=== PATIENT | female | born 1970 | race Caucasian/White ===

== ENCOUNTER 2016-08-27 22:13 | Emergency (ER) | payer BC ==
[2016-08-27] MEDS ORDERED: Phenergan 25 MG INJ IV ONE (22:44)
[2016-08-27] MEDS ORDERED: Hydromorphone 1 mg/ml Ampule IV ONE (22:44)
[2016-08-27] MEDS ORDERED: Sodium Chloride 0.9% 1000 ML 1,000 ML IV SCH (22:45)
[2016-08-27] MEDS ORDERED: Hydromorphone 1 mg/ml Ampule ONE (22:52)
[2016-08-27] MEDS ORDERED: Sodium Chloride 0.9% 1000 ML 1,000 ML ONE (22:52)
[2016-08-27] MEDS ORDERED: Phenergan 25 MG INJ ONE (22:52)
--- NOTE | 2016-08-27 22:52 | ERPHSYRPT ---
- History of Present Illness Time Seen by Provider: 08/27/16 22:29 Source: patient, family () Exam Limitations: no limitations Patient Subjective Stated Complaint: Head on left side near ear and neck has hurt all day. PT has layed in bed most of the day. PT was going to the bathroom when she fell. pt c/o pain to the back of head, left side of neck, left shoulder , left knee. pt denies blacking out and did not hit anything except the floor. Triage Nursing Assessment: PT is alert x 3. came into the ER by wheelchair. skin pink warm and dry large bruise noted the left knee. scrap noted the left elbow. respirations even and unlabored. Hand grasps equal normal power, foot pushes equal normal power. Physician History: ABOUT 80 MINUTES AGO PT WAS AT HOME WALKING FROM THE BEDROOM TO THE DINING ROOM AND SUDDENLY FELL WITH RESULTANT PAIN IN THE LEFT KNEE, LEFT ELBOW, LEFT ARM, LEFT SHOULDER AND LEFT SIDE OF THE NECK. PT STATES SHE HAS HAD A LEFT SIDED HEADACHE AND LEFT EARACHE EARLIER TODAY AND HAS NUMBNESS OF THE LEFT SIDE OF THE NECK(WHICH SHE HAS HAD INTERMITTENTLY FOR THE PAST YEAR). PT ALSO C/O DULL LEFT ANTERIOR CHEST PAIN AFTER THE FALL FOR 15 MINUTES. Allergies/Adverse Reactions: cephalexin monohydrate [From Keflex] Allergy (Intermediate, Verified 11/03/12 18 :22) Rash Penicillins Allergy (Intermediate, Verified 11/03/12 18:22) Rash prednisone Allergy (Intermediate, Verified 08/27/16 22:27) Rash Home Medications: Lisinopril 20 mg PO DAILY 09/12/11 [History] Multivitamin W/Iron, Minerals [Unicap Sr] 1 each PO DAILY 09/12/11 [History] Zolpidem Tartrate 10 mg [Ambien 10 MG] 10 mg PO HS 09/12/11 [History] Cyclobenzaprine HCl 10 mg [Flexeril 10 MG] 10 mg PO TID PRN PRN 11/03/12 [ History] Buspirone HCl 15 mg PO DAILY 11/10/13 [History] Potassium Chloride [Klor-Con 8] 8 meq PO DAILY 11/12/13 [History] Alprazolam 0.5 mg PO DAILY PRN PRN 05/13/16 [History] Citalopram Hydrobromide [Celexa] 60 mg PO DAILY 05/13/16 [History] Hydrocodone/APAP 10/325 mg [Stark 10/325 MG Tablet] 1 tab PO Q6H PRN PRN 05/13/16 [History] Diclofenac Sodium [Voltaren] 75 mg PO DAILY 08/27/16 [History] Furosemide 20 mg [Lasix 20 mg] 20 mg PO DAILY 08/27/16 [History] Ibuprofen 800 mg PO UD 08/27/16 [History] Hx Tetanus, Diphtheria Vaccination/Date Given: No Hx Influenza Vaccination/Date Given: No Hx Pneumococcal Vaccination/Date Given: No Immunizations Up to Date: Yes - Review of Systems Ears, Nose, & Throat: Ear Pain (LEFT) Cardiac: Chest Pain Musculoskeletal: Neck Pain, Other (PAIN IN LEFT KNEE, ELBOW, ARM AND SHOULDER ) Neurological: Headache, Sensory Changes (NUMBNESS OVER LEFT SIDE OF NECK) All Other Systems: Reviewed and Negative - Past Medical History Pertinent Past Medical History: Yes Neurological History: No Pertinent History ENT History: No Pertinent History Cardiac History: Arrhythmia, Hypertension Respiratory History: No Pertinent History Endocrine Medical History: No Pertinent History Musculoskeletal History: Arthritis GI Medical History: GERD, Gallbladder Disease, Other History: No Pertinent History Psycho-Social History: Anxiety, Depression, Panic Disorder Female Reproductive Disorders: Pelvic Inflammatory Disease Other Medical History: anemia - Past Surgical History Past Surgical History: Yes Neuro Surgical History: No Pertinent History Cardiac: No Pertinent History Respiratory: No Pertinent History Gastrointestinal: Cholecystectomy Genitourinary: No Pertinent History Musculoskeletal: Other Female Surgical History: Section, Tubal Ligation Other Surgical History: back surgery, nodule taken off stomach - Social History Smoking Status: Never smoker Exposure to second hand smoke: No Drug Use: none Patient Lives Alone: No Significant Family History: no pertinent family hx - Female History Hx Now: No - Nursing Vital Signs Nursing Vital Signs: Initial Vital Signs Temperature 97.9 F Temperature Source Oral Pulse Rate 55 Respiratory Rate 20 Blood Pressure [] 120/72 Pain Intensity 8 - [place] Coma Score Best Eye Response ([place]): (4) open spontaneously Best Verbal Response ([place]): (5) oriented Best Motor Response ([place]): (6) obeys commands [place] Total: 15 - Physical Exam General Appearance: alert Head Injury: no evidence of injury Eye Exam: PERRL/EOMI, eyes nml inspection ENT Exam: airway nml, hearing grossly normal, No dental injury Neck Exam: trachea midline Respiratory/Chest Exam: normal breath sounds Cardiovascular Exam: normal heart sounds Gastrointestinal Exam: soft, normal bowel sounds Back Exam: normal range of motion Extremity Exam: normal range of motion, tenderness (MILD TENDERNESS OVER BRUISE ON INFERIOR ASPECT OF THE LEFT KNEE; MILD TENDERNESS OVER SUPERFICIAL ABRASION OF THE LEFT ELBOW; MILD TENDERNESS OF THE LEFT ARM AND POSTERIOR ASPECT OF THE LEFT SHOULDER.) Peripheral Pulses: dorsalis-pedis (R): 2+, dorsalis-pedis (L): 2+ Neurologic Exam: alert, cooperative, sensation nml, No motor weakness SpO2 Interpretation: normal SpO2: 97 Oxygen Delivery: Room Air - Course Nursing assessment & vital signs reviewed: Yes EKG Interpreted by Me: RATE (59), Sinus Jez, NORMAL AXIS, NORMAL INTERVALS - Radiology Exams Left Shoulder X-ray Interpretation: Interpreted by me, No Fracture Left Knee X-ray Interpretation: Interpreted by me, No Fracture Chest X-ray Interpretation: Interpreted by me, No Pneumonia Left Elbow X-ray Interpretation: Teleradiologist Report (NO ACUTE FINDINGS) Left Humerus X-ray Interpretation: Teleradiologist Report (NORMAL LEFT HUMERUS X-RAYS.) - CT Exams Head CT Interpretation: Tele-radiologist Report (NEGATIVE HEAD CT. NO INTRACRANIAL HEMORRHAGE, FRACTURE OR OTHER TRAUMATIC INJURY IS SEEN.) Cervical Spine CT Interpretation: Tele-radiologist Report (MILD CERVICAL DEGENERATIVE CHANGES. NO ACUTE FRACTURE, DISLOCATION OR OTHER TRAUMATIC INJURY IS SEEN.) Ordered Tests: Active Orders 24 hr Category Date Time Status EKG-ER Only STAT Care 08/27/16 22:42 Active IV Insertion STAT Care 08/27/16 22:42 Active CERVICAL SPINE WO CONTRAST [CT] Stat Exams 08/27/16 22:40 Taken CHEST 1 VIEW (PORTABLE) Stat Exams 08/27/16 22:42 Taken ELBOW (MINIMUM 3 VIEWS) Stat Exams 08/27/16 22:41 Taken HEAD WITHOUT CONTRAST [CT] Stat Exams 08/27/16 22:45 Taken HUMERUS Stat Exams 08/27/16 22:41 Taken KNEE (3 VIEWS) Stat Exams 08/27/16 22:41 Taken SHOULDER Stat Exams 08/27/16 22:41 Taken AMYLASE Stat Lab 08/27/16 22:50 Completed CBC W DIFF Stat Lab 08/27/16 22:50 Completed CMP Stat Lab 08/27/16 22:50 Completed LIPASE Stat Lab 08/27/16 22:50 Completed MAGNESIUM Stat Lab 08/27/16 22:50 Completed TROPONIN Q3H Lab 08/27/16 22:50 Completed TROPONIN Q3H Lab 08/28/16 01:45 Ordered TROPONIN Q3H Lab 08/28/16 04:45 Ordered TROPONIN Q3H Lab 08/28/16 07:45 Ordered TROPONIN Q3H Lab 08/28/16 10:45 Ordered UA W/RFX UR CULTURE Stat Lab 08/27/16 23:40 Completed Medication Summary Generic Name Dose Route Start Last Admin Trade Name Freq PRN Reason Stop Dose Admin Sodium Chloride 1,000 mls @ 100 mls/hr 08/27/16 22:45 08/27/16 22:55 Sodium Chloride 0.9% 1000 Ml IV 09/26/16 22:44 100 mls/hr .Q10H HARI Administration Discontinued Medications Generic Name Dose Route Start Last Admin Trade Name Freq PRN Reason Stop Dose Admin Hydromorphone HCl 1 mg 08/27/16 22:44 08/27/16 22:55 Hydromorphone 1 Mg/Ml Ampule IV 08/27/16 22:45 1 mg STAT ONE Administration Hydromorphone HCl Confirm 08/27/16 22:52 Hydromorphone 1 Mg/Ml Ampule Administered 08/27/16 22:53 Dose 1 mg .ROUTE .STK-MED ONE Hydromorphone HCl 1 mg 08/28/16 01:27 08/28/16 01:31 Hydromorphone 1 Mg/Ml Ampule IV 08/28/16 01:28 1 mg STAT ONE Administration Hydromorphone HCl Confirm 08/28/16 01:30 Hydromorphone 1 Mg/Ml Ampule Administered 08/28/16 01:31 Dose 1 mg .ROUTE .STK-MED ONE Promethazine HCl 12.5 mg 08/27/16 22:44 08/27/16 22:56 Phenergan 25 Mg Inj IV 08/27/16 22:45 12.5 mg STAT ONE Administration Promethazine HCl Confirm 08/27/16 22:52 Phenergan 25 Mg Inj Administered 08/27/16 22:53 Dose 25 mg .ROUTE .STK-MED ONE Lab/Rad Data: Laboratory Result Diagrams 08/27/16 22:50 08/27/16 22:50 Laboratory Results 08/27/16 08/27/16 08/27/16 Range/Units 23:40 22:50 22:50 WBC (4.0-10.5) K/mm3 RBC (4.1-5.4) M/mm3 Hgb (12.0-16.0) gm/dl Hct (35-47) % MCV (78-100) fl MCH (26-32) pg MCHC (32-36) g/dl RDW (11.5-14.0) % Plt Count (150-450) K/mm3 MPV (6-9.5) fl Gran % (36.0-66.0) % Lymphocytes % (24.0-44.0) % Monocytes % (0.0-12.0) % Eosinophils % (0.00-5.0) % Basophils % (0.0-0.4) % Basophils # (0-0.4) Sodium 141 (136-145) mEq/L Potassium 3.2 L (3.5-5.1) mEq/L Chloride 106 (98-107) mEq/L Carbon Dioxide 26.3 (21-32) mEq/L Anion Gap 11.6 (5-15) MEQ/L BUN 9 (9-20) mg/dL Creatinine 0.76 (0.55-1.30) mg/dl Estimated GFR > 60 ML/MIN Glucose 109 (70-110) MG/DL Calcium 8.4 L (8.5-10.1) mg/dL Magnesium 1.8 (1.8-2.4) mg/dL Total Bilirubin 0.30 (0.2-1.0) mg/dL AST 16 (15-37) U/L ALT 31 (12-78) U/L Alkaline Phosphatase 62 (46-116) U/L Troponin I < 0.017 (0.000-0.056) ng/ml Serum Total Protein 7.1 (6.4-8.2) gm/dL Albumin 3.3 L (3.4-5.0) g/dL Amylase 46 (25-115) U/L Lipase 101 (73-393) U/L Ur Collection Type CLEAN CATCH Urine Color YELLOW (YELLOW) Urine Appearance CLEAR (CLEAR) Urine pH 7.0 (5-6) Ur Specific [place] 1.025 (1.005-1.025) Urine Protein NEGATIVE (Negative) Urine Glucose (UA) NEGATIVE (NEGATIVE) mg/dL Urine Ketones NEGATIVE (NEGATIVE) Urine Nitrite NEGATIVE (NEGATIVE) Urine Bilirubin NEGATIVE (NEGATIVE) Urine Urobilinogen 1 (0-1) mg/dL Urine WBC (Auto) NEGATIVE (NEGATIVE) Urine RBC (Auto) NEGATIVE (0-5) Julian/ul Specimen Received 08/27/16:2340 08/27/16 Range/Units 22:50 WBC 6.8 (4.0-10.5) K/mm3 RBC 4.22 (4.1-5.4) M/mm3 Hgb 12.3 (12.0-16.0) gm/dl Hct 38.3 (35-47) % MCV 90.8 (78-100) fl MCH 29.1 (26-32) pg MCHC 32.1 (32-36) g/dl RDW 14.1 H (11.5-14.0) % Plt Count 280 (150-450) K/mm3 MPV 9.0 (6-9.5) fl Gran % 56.4 (36.0-66.0) % Lymphocytes % 33.2 (24.0-44.0) % Monocytes % 6.9 (0.0-12.0) % Eosinophils % 3.1 (0.00-5.0) % Basophils % 0.4 (0.0-0.4) % Basophils # 0.03 (0-0.4) Sodium (136-145) mEq/L Potassium (3.5-5.1) mEq/L Chloride (98-107) mEq/L Carbon Dioxide (21-32) mEq/L Anion Gap (5-15) MEQ/L BUN (9-20) mg/dL Creatinine (0.55-1.30) mg/dl Estimated GFR ML/MIN Glucose (70-110) MG/DL Calcium (8.5-10.1) mg/dL Magnesium (1.8-2.4) mg/dL Total Bilirubin (0.2-1.0) mg/dL AST (15-37) U/L ALT (12-78) U/L Alkaline Phosphatase (46-116) U/L Troponin I (0.000-0.056) ng/ml Serum Total Protein (6.4-8.2) gm/dL Albumin (3.4-5.0) g/dL Amylase (25-115) U/L Lipase (73-393) U/L Ur Collection Type Urine Color (YELLOW) Urine Appearance (CLEAR) Urine pH (5-6) Ur Specific [place] (1.005-1.025) Urine Protein (Negative) Urine Glucose (UA) (NEGATIVE) mg/dL Urine Ketones (NEGATIVE) Urine Nitrite (NEGATIVE) Urine Bilirubin (NEGATIVE) Urine Urobilinogen (0-1) mg/dL Urine WBC (Auto) (NEGATIVE) Urine RBC (Auto) (0-5) Julian/ul Specimen Received - Departure Time of Disposition: 02:25 Departure Disposition: Home Clinical Impression: FALL, LEFT KNEE CONTUSION, HEADACHE, NECK PAIN, LEFT SHOULDER SPRAIN, LEFT ELBOW/ARM PAIN., CHEST PAIN Condition: Stable Critical Care Time: No Referrals: KARLA [place] [Primary Care Provider] - Instructions: Prevent Falls, Contusion, Shoulder Sprain Additional Instructions: FOLLOW UP WITH PRIVATE DOCTOR TOMORROW. WEAR LEFT ARM SLING FOR COMFORT. Prescriptions: Naproxen [Naprosyn] 500 mg PO [id number] PRN #20 tablet PRN Reason: Pain
[2016-08-27 23:07] LABS: BASOPHIL % 0.4 % (0.0-0.4); Eosinophil % 3.1 % (0.00-5.0); Granulocytes % 56.4 % (36.0-66.0); Lymphocytes % 33.2 % (24.0-44.0); Mean Cell Volume 90.8 fl (78-100); Mean Corpuscular Hemoglobin 29.1 pg (26-32); Monocytes % 6.9 % (0.0-12.0); Platelet Count 280 K/mm3 (150-450); Red Blood Count 4.22 M/mm3 (4.1-5.4); Red Cell Distribution Width 14.1 % (11.5-14.0); White Blood Count 6.8 K/mm3 (4.0-10.5)
[2016-08-27 23:27] LABS: ALBUMIN 3.3 g/dL (3.4-5.0); ALKALINE PHOSPHATASE 62 U/L (46-116); ANION GAP 11.6 MEQ/L (5-15); BLOOD UREA NITROGEN 9 mg/dL (9-20); CHLORIDE 106 mEq/L (98-107); Carbon Dioxide 26.3 mEq/L (21-32); Glucose 109 MG/DL (70-110); LIPASE 101 U/L (73-393); MAGNESIUM 1.8 mg/dL (1.8-2.4); Potassium 3.2 mEq/L (3.5-5.1); SGOT/AST 16 U/L (15-37); SGPT/ALT 31 U/L (12-78); SODIUM 141 mEq/L (136-145); Total Protein 7.1 gm/dL (6.4-8.2)
[2016-08-28 00:17] LABS: ADD URINE CULTURE? NO (NO); COMPLETE URINE MICROSCOPIC? NO; Collection Type CLEAN CATCH
[2016-08-28] MEDS ORDERED: Hydromorphone 1 mg/ml Ampule IV ONE (01:27)
[2016-08-28] MEDS ORDERED: Hydromorphone 1 mg/ml Ampule ONE (01:30)
[2016-08-28 01:53] VITALS: BP 120/72; PULSE 55
[2016-08-28 02:08] VITALS: O2SAT 97
[2016-08-28] MEDS ORDERED: NORCO 5/325 MG PO ONE (02:45)
[2016-08-28] MEDS ORDERED: NORCO 5/325 MG ONE (02:46)
--- NOTE | 2016-08-28 07:39 | XRAY ---
Indication: Pain following fall. Comparison: None 3 views of the left knee intact with mild medial degenerative joint space narrowing and small proximal tibial benign appearing sclerotic lesion, bone island versus healed fibrous cortical defect. No other bony, articular, or soft tissue abnormalities.
--- NOTE | 2016-08-28 07:41 | XRAY ---
Indication: Pain following fall. Multiple contiguous axial images obtained through the head without contrast. Comparison: None Normal appearing brain parenchyma, ventricles, and bony calvarium. Visualized paranasal sinuses and mastoid air cells are clear. Impression: Normal CT head without contrast exam. Comment: Preliminary interpretation was made by [facility]. No discrepancy. CTDI 65.42
--- NOTE | 2016-08-28 07:46 | XRAY ---
Indication: Pain following fall. Comparison: None 3 views of the left shoulder intact with mild acromioclavicular degenerative arthropathy. No other bony, articular, or soft tissue abnormalities.
--- NOTE | 2016-08-28 07:46 | XRAY ---
Indication: Pain following fall. Comparison: None Single PA chest demonstrates normal heart, lungs, and bony thorax.
--- NOTE | 2016-08-28 07:46 | XRAY ---
Indication: Neck and shoulder pain following fall. Multiple contiguous axial images obtained through the cervical spine. Sagittal and coronal reformatted images obtained. Comparison: None Axial images negative for acute fracture, suspicious bony lesions, or spinal canal stenosis. Minimal C6-C7 degenerative endplate spurring. Sagittal and coronal reformatted images demonstrate slight cervical lordotic straightening, positional versus paraspinal muscular spasm. Minimal C6-C7 disc space narrowing. No acute compression fracture, subluxation, or jumped facet. Normal-appearing craniocervical junction. Visualized noncontrasted soft tissues including base of the brain and lung apices are unremarkable. Impression: 1. Negative acute fracture/subluxation. 2. Lordotic straightening, positional versus paraspinal spasm. 3. Minimal C6-C7 degenerative disc disease. Comment: Preliminary interpretation was made by [facility]. No discrepancy. CTDI 128.72
--- NOTE | 2016-08-28 07:48 | XRAY ---
Indication: Pain following fall. Comparison: None 2 views of the left humerus demonstrates mild acromioclavicular degenerative arthropathy and medial elbow accessory ossicle. No other bony, articular, or soft tissue abnormalities. Comment: Preliminary interpretation was made by [facility]. No discrepancy.
--- NOTE | 2016-08-28 07:50 | XRAY ---
Indication: Pain following fall. Comparison: None 3 views of the left elbow demonstrates medial elbow accessory ossicle. No other bony, articular, or soft tissue abnormalities. Comment: Preliminary interpretation was made by [facility]. No discrepancy.
== END 2016-08-28 02:54 | disposition home or self-care (01) ==
LOC: ED 22:13
DX: S80.02XA Contusion of left knee, initial encounter (principal); R51 Headache; M54.2 Cervicalgia; S43.402A Unspecified sprain of left shoulder joint, initial encounter; M25.522 Pain in left elbow; M79.602 Pain in left arm; R07.89 Other chest pain; W18.39XA Other fall on same level, initial encounter; Z79.899 Other long term (current) drug therapy
CPT/HCPCS: 36000; 36415; 70450; 71010; 72125; 73030; 73060; 73080; 73562; 80053; 81002; 82150; 83690; 83735; 84484; 85025; 93005; 96360; 96361; 96374; 96375; 96376; 99284; 99285; J1170; J2550; A9270-GY

== ENCOUNTER 2016-09-15 06:37 | Emergency (ER) | payer BC ==
[2016-09-15] MEDS ORDERED: Zofran 4 MG/2 ML VIAL IV ONE (07:36)
[2016-09-15] MEDS ORDERED: PROTONIX 40 MG IV IV ONE ×2 (07:36→07:51)
[2016-09-15] MEDS ORDERED: Sodium Chloride 0.9% 1000 ML 1,000 ML IV SCH (07:45)
[2016-09-15] MEDS ORDERED: Zofran 4 MG/2 ML VIAL ONE (07:51)
[2016-09-15] MEDS ORDERED: Sodium Chloride 0.9% 1000 ML 1,000 ML ONE (07:51)
[2016-09-15 08:10] LABS: BASOPHIL % 0.4 % (0.0-0.4); Eosinophil % 1.2 % (0.00-5.0); Granulocytes % 72.6 % (36.0-66.0); Lymphocytes % 18.7 % (24.0-44.0); Mean Cell Volume 92.2 fl (78-100); Mean Corpuscular Hemoglobin 29.8 pg (26-32); Mean Platelet Volume 9.3 fl (6-9.5); Monocytes % 7.1 % (0.0-12.0); Platelet Count 277 K/mm3 (150-450); Red Blood Count 4.23 M/mm3 (4.1-5.4); Red Cell Distribution Width 14.7 % (11.5-14.0); White Blood Count 7.4 K/mm3 (4.0-10.5)
[2016-09-15 08:15] LABS: ALBUMIN 3.5 g/dL (3.4-5.0); ALKALINE PHOSPHATASE 61 U/L (46-116); ANION GAP 12.3 MEQ/L (5-15); BLOOD UREA NITROGEN 12 mg/dL (9-20); CHLORIDE 106 mEq/L (98-107); Carbon Dioxide 28.4 mEq/L (21-32); Glucose 94 MG/DL (70-110); LIPASE 103 U/L (73-393); Potassium 3.7 mEq/L (3.5-5.1); SGOT/AST 18 U/L (15-37); SGPT/ALT 19 U/L (12-78); SODIUM 143 mEq/L (136-145); Total Protein 7.1 gm/dL (6.4-8.2)
--- NOTE | 2016-09-15 08:20 | ERPHSYRPT ---
- History of Present Illness Time Seen by Provider: 09/15/16 07:10 Historian: patient Exam Limitations: clinical condition Patient Subjective Stated Complaint: pt is co weakness today and bilat lower abd pain sharp in nature non radiating -walking makes it worse she thought it was gas but went to bathroom had sm bm but pain cont and she had to leave work - she has had chilling yesterday -she has pain and bruising of her left knee and pain to left arm from fall -she is tender to right lower ribs - she feels hot and cold at times Triage Nursing Assessment: pt is awake and alert and able to answer questions - she is moaning form the pain with movement Physician History: PATIENT COMPLAINS OF LOWER ABDOMINAL PAINS SINCE LAST NIGHT SHARP IN CHARACTER, DENIES FEVER, NAUSEA, EMESIS, DIARRHEA OR URINARY SYMPTOMS. Timing/Duration: yesterday Activities at Onset: none Quality: cramping Abdominal Pain Onset Location: RLQ, LLQ Pain Radiation: no radiation, flank Severity of Pain-Max: moderate Severity of Pain-Current: moderate Modifying Factors: Improves With: nothing Associated Symptoms: denies symptoms Allergies/Adverse Reactions: cephalexin monohydrate [From Keflex] Allergy (Intermediate, Verified 09/15/16 07 :19) Rash Penicillins Allergy (Intermediate, Verified 09/15/16 07:19) Rash prednisone Allergy (Intermediate, Verified 09/15/16 07:19) Rash Home Medications: Lisinopril 20 mg PO DAILY 09/12/11 [History] Multivitamin W/Iron, Minerals [Unicap Sr] 1 each PO DAILY 09/12/11 [History] Zolpidem Tartrate 10 mg [Ambien 10 MG] 10 mg PO HS 09/12/11 [History] Cyclobenzaprine HCl 10 mg [Flexeril 10 MG] 10 mg PO TID PRN PRN 11/03/12 [ History] Buspirone HCl 15 mg PO DAILY 11/10/13 [History] Potassium Chloride [Klor-Con 8] 8 meq PO DAILY 11/12/13 [History] Alprazolam 0.5 mg PO DAILY PRN PRN 05/13/16 [History] Citalopram Hydrobromide [Celexa] 60 mg PO DAILY 05/13/16 [History] Hydrocodone/APAP 10/325 mg [[place] 10/325 MG Tablet] 1 tab PO Q6H PRN PRN 05/13/16 [History] Diclofenac Sodium [Voltaren] 75 mg PO DAILY 08/27/16 [History] Furosemide 20 mg [Lasix 20 mg] 40 mg PO DAILY 08/27/16 [History] Hx Tetanus, Diphtheria Vaccination/Date Given: No Hx Influenza Vaccination/Date Given: No Hx Pneumococcal Vaccination/Date Given: No - Review of Systems Constitutional: No Fever, No Chills Eyes: No Symptoms Ears, Nose, & Throat: No Symptoms Respiratory: No Symptoms, No Cough, No Dyspnea Cardiac: No Symptoms, No Chest Pain, No Edema, No Syncope Abdominal/Gastrointestinal: No Nausea, No Vomiting, No Diarrhea Genitourinary Symptoms: No Symptoms, No Dysuria Musculoskeletal: No Symptoms, No Back Pain, No Neck Pain Skin: No Rash Neurological: No Symptoms, No Dizziness, No Focal Weakness, No Sensory Changes Psychological: No Symptoms Endocrine: No Symptoms All Other Systems: Reviewed and Negative - Past Medical History Pertinent Past Medical History: Yes Neurological History: No Pertinent History ENT History: No Pertinent History Cardiac History: Arrhythmia, Hypertension Respiratory History: No Pertinent History Endocrine Medical History: No Pertinent History Musculoskeletal History: Arthritis GI Medical History: GERD, Gallbladder Disease, Other History: No Pertinent History Psycho-Social History: Anxiety, Depression, Panic Disorder Female Reproductive Disorders: Pelvic Inflammatory Disease Other Medical History: anemia - Past Surgical History Past Surgical History: Yes Neuro Surgical History: No Pertinent History Cardiac: No Pertinent History Respiratory: No Pertinent History Gastrointestinal: Cholecystectomy Genitourinary: No Pertinent History Musculoskeletal: Other Female Surgical History: Section, Tubal Ligation Other Surgical History: back surgery, nodule taken off stomach - Social History Smoking Status: Never smoker Exposure to second hand smoke: No Drug Use: none Patient Lives Alone: No Significant Family History: no pertinent family hx - Female History Hx Last Menstrual Period: na Hx Now: No - Nursing Vital Signs Nursing Vital Signs: Initial Vital Signs Temperature 98.3 F Temperature Source Oral Pulse Rate 57 Respiratory Rate 16 Blood Pressure [] 118/68 Pain Intensity 3 - Physical Exam General Appearance: no apparent distress, alert Eye Exam: PERRL/EOMI, eyes nml inspection Ears, Nose, Throat Exam: normal ENT inspection, pharynx normal, moist mucous membranes Neck Exam: normal inspection, non-tender, supple, full range of motion Respiratory Exam: normal breath sounds, lungs clear, No respiratory distress Cardiovascular Exam: regular rate/rhythm, normal heart sounds Gastrointestinal/Abdomen Exam: soft, normal bowel sounds, tenderness (MINIMAL BILATERAL LOWER QUADRANT TENDERNESS), No mass Back Exam: normal inspection, normal range of motion, No CVA tenderness, No vertebral tenderness Extremity Exam: normal inspection, normal range of motion, pelvis stable Neurologic Exam: alert, oriented x 3, cooperative, normal mood/affect, nml cerebellar function, sensation nml, No motor deficits Skin Exam: normal color, warm, dry SpO2 Interpretation: normal SpO2: 98 Oxygen Delivery: Room Air - Radiology Exams Left Lower Leg X-ray Interpretation: Interpreted by me, Negative, No Fracture - CT Exams Abdomen/Pelvis CT Interpretation: Discussed w/radiologist (THERE IS MINIMAL DESCENDING COLON STRANDING, R/O COLITIS, NEW SIGMOID DIVERTICULOSIS WITHOUT DIVERTICULITIS) Ordered Tests: Active Orders 24 hr Category Date Time Status Clean Catch Urine Specimen STAT Care 09/15/16 07:36 Active IV Insertion STAT Care 09/15/16 07:36 Active ABDOMEN AND PELVIS W CONTRAST [CT] Stat Exams 09/15/16 07:36 Completed LOWER LEG Routine Exams 09/15/16 08:29 Completed AMYLASE Stat Lab 09/15/16 07:30 Completed BLOOD CULTURE Stat Lab 09/15/16 07:30 Received CBC W DIFF Stat Lab 09/15/16 07:30 Completed CMP Stat Lab 09/15/16 07:30 Completed HCG,QUALITATIVE URINE Stat Lab 09/15/16 07:30 Completed LIPASE Stat Lab 09/15/16 07:30 Completed UA W/RFX UR CULTURE Stat Lab 09/15/16 07:30 Completed Urine Triage Profile Stat Lab 09/15/16 07:30 Completed Medication Summary Generic Name Dose Route Start Last Admin Trade Name Freq PRN Reason Stop Dose Admin Sodium Chloride 1,000 mls @ 250 mls/hr 09/15/16 07:45 09/15/16 07:55 Sodium Chloride 0.9% 1000 Ml IV 10/15/16 07:44 250 mls/hr .Q4H HARI Administration Discontinued Medications Generic Name Dose Route Start Last Admin Trade Name Freq PRN Reason Stop Dose Admin Levofloxacin/Dextrose 500 mg in 100 mls @ 100 mls/hr 09/15/16 08:50 09/15/16 09:13 Levofloxacin 500mg/100ml D5w IV 09/15/16 09:49 100 mls/hr STAT STA Administration Levofloxacin/Dextrose Confirm 09/15/16 09:08 Levofloxacin 500mg/100ml D5w Administered 09/15/16 09:09 Dose 500 mg in 100 mls @ ud IV .STK-MED ONE Morphine Sulfate 10 mg 09/15/16 08:47 09/15/16 09:13 Morphine Sulfate 10 Mg/Ml IV 09/15/16 08:48 10 mg STAT ONE Administration Morphine Sulfate Confirm 09/15/16 09:07 Morphine Sulfate 10 Mg/Ml Administered 09/15/16 09:08 Dose 10 mg .ROUTE .STK-MED ONE Ondansetron HCl 4 mg 09/15/16 07:36 09/15/16 07:55 Zofran 4 Mg/2 Ml Vial IV 09/15/16 07:37 4 mg STAT ONE Administration Ondansetron HCl Confirm 09/15/16 07:51 Zofran 4 Mg/2 Ml Vial Administered 09/15/16 07:52 Dose 4 mg .ROUTE .STK-MED ONE Pantoprazole Sodium 40 mg 09/15/16 07:36 09/15/16 07:55 Protonix 40 Mg Iv IV 09/15/16 07:37 40 mg STAT ONE Administration Pantoprazole Sodium Confirm 09/15/16 07:51 Protonix 40 Mg Iv Administered 09/15/16 07:52 Dose 40 mg IV .STK-MED ONE Lab/Rad Data: Laboratory Result Diagrams 09/15/16 07:30 09/15/16 07:30 Laboratory Results 09/15/16 09/15/16 09/15/16 Range/Units 07:30 07:30 07:30 WBC 7.4 (4.0-10.5) K/mm3 RBC 4.23 (4.1-5.4) M/mm3 Hgb 12.6 (12.0-16.0) gm/dl Hct 39.0 (35-47) % MCV 92.2 (78-100) fl MCH 29.8 (26-32) pg MCHC 32.3 (32-36) g/dl RDW 14.7 H (11.5-14.0) % Plt Count 277 (150-450) K/mm3 MPV 9.3 (6-9.5) fl Gran % 72.6 H (36.0-66.0) % Lymphocytes % 18.7 L (24.0-44.0) % Monocytes % 7.1 (0.0-12.0) % Eosinophils % 1.2 (0.00-5.0) % Basophils % 0.4 (0.0-0.4) % Basophils # 0.03 (0-0.4) Sodium 143 (136-145) mEq/L Potassium 3.7 (3.5-5.1) mEq/L Chloride 106 (98-107) mEq/L Carbon Dioxide 28.4 (21-32) mEq/L Anion Gap 12.3 (5-15) MEQ/L BUN 12 (9-20) mg/dL Creatinine 0.74 (0.55-1.30) mg/dl Estimated GFR > 60 ML/MIN Glucose 94 (70-110) MG/DL Calcium 8.6 (8.5-10.1) mg/dL Total Bilirubin 0.40 (0.2-1.0) mg/dL AST 18 (15-37) U/L ALT 19 (12-78) U/L Alkaline Phosphatase 61 (46-116) U/L Serum Total Protein 7.1 (6.4-8.2) gm/dL Albumin 3.5 (3.4-5.0) g/dL Amylase 38 (25-115) U/L Lipase 103 (73-393) U/L Ur Collection Type Urine Color (YELLOW) Urine Appearance (CLEAR) Urine pH (5-6) Ur Specific [place] (1.005-1.025) Urine Protein (Negative) Urine Ketones (NEGATIVE) Urine Blood (0-5) Julian/ul Urine Nitrite (NEGATIVE) Urine Bilirubin (NEGATIVE) Urine Urobilinogen (0-1) mg/dL Ur Leukocyte Esterase (NEGATIVE) Urine Glucose (NEGATIVE) mg/dL Urine HCG, Qual NEGATIVE (Negative) Urine Opiates Level (NEGATIVE) Ur Methadone (NEGATIVE) Urine Barbiturates (NEGATIVE) Ur Phencyclidine (PCP) (NEGATIVE) Urine Amphetamine (NEGATIVE) U Benzodiazepine Level (NEGATIVE) Urine Cocaine (NEGATIVE) Urine Marijuana (THC) (NEGATIVE) Specimen Received 09/15/16 09/15/16 Range/Units 07:30 07:30 WBC (4.0-10.5) K/mm3 RBC (4.1-5.4) M/mm3 Hgb (12.0-16.0) gm/dl Hct (35-47) % MCV (78-100) fl MCH (26-32) pg MCHC (32-36) g/dl RDW (11.5-14.0) % Plt Count (150-450) K/mm3 MPV (6-9.5) fl Gran % (36.0-66.0) % Lymphocytes % (24.0-44.0) % Monocytes % (0.0-12.0) % Eosinophils % (0.00-5.0) % Basophils % (0.0-0.4) % Basophils # (0-0.4) Sodium (136-145) mEq/L Potassium (3.5-5.1) mEq/L Chloride (98-107) mEq/L Carbon Dioxide (21-32) mEq/L Anion Gap (5-15) MEQ/L BUN (9-20) mg/dL Creatinine (0.55-1.30) mg/dl Estimated GFR ML/MIN Glucose (70-110) MG/DL Calcium (8.5-10.1) mg/dL Total Bilirubin (0.2-1.0) mg/dL AST (15-37) U/L ALT (12-78) U/L Alkaline Phosphatase (46-116) U/L Serum Total Protein (6.4-8.2) gm/dL Albumin (3.4-5.0) g/dL Amylase (25-115) U/L Lipase (73-393) U/L Ur Collection Type VOID Urine Color DARK YELLOW (YELLOW) Urine Appearance CLEAR (CLEAR) Urine pH 6.0 (5-6) Ur Specific [place] 1.015 (1.005-1.025) Urine Protein NEGATIVE (Negative) Urine Ketones NEGATIVE (NEGATIVE) Urine Blood NEGATIVE (0-5) Julian/ul Urine Nitrite NEGATIVE (NEGATIVE) Urine Bilirubin SMALL (NEGATIVE) Urine Urobilinogen 1 (0-1) mg/dL Ur Leukocyte Esterase NEGATIVE (NEGATIVE) Urine Glucose NEGATIVE (NEGATIVE) mg/dL Urine HCG, Qual (Negative) Urine Opiates Level NEG. (NEGATIVE) Ur Methadone NEG. (NEGATIVE) Urine Barbiturates NEG. (NEGATIVE) Ur Phencyclidine (PCP) NEG. (NEGATIVE) Urine Amphetamine NEG. (NEGATIVE) U Benzodiazepine Level NEG. (NEGATIVE) Urine Cocaine NEG. (NEGATIVE) Urine Marijuana (THC) NEG. (NEGATIVE) Specimen Received 09/15/2016 0750 - Progress Progress: improved Progress Note: 09/15/16 08:58 IV NORMAL SALINE 250ML/HR, ZOFRAN 4MG, PROTONIX 40MG IV, MORPHINE 10MG IVP, AFTER 2 SETS OF BLOOD CULTURES LEVAQUIN 500MG IVPB Counseled pt/family regarding: lab results, diagnosis, need for follow-up - Departure Time of Disposition: 10:16 Departure Disposition: Home Clinical Impression: EARLY COLITIS Condition: Stable Critical Care Time: No Referrals: [facility] [place] [Primary Care Provider] - Additional Instructions: ANTIBIOTIC CIPRO 500MG TWICE DAILY FOR 10 DAYS AND FLAGYL 500MG EVERY 6 HOURS FOR 10 DAYS. CONTINUE NORCO FOR PAIN NEEDED. FOLLOWUP WITH YOUR FAMILY PHYSICIAN FOR EVALUATION IN 1 WEEK. TYLENOL EVERY 4 HOURS FOR FEVER. RETURN TO EMERGENCY FOR INCREASING PAIN. Prescriptions: Ciprofloxacin [Cipro 500 MG] 500 mg PO BID #20 tablet Metronidazole 500 mg [Flagyl 500 MG] 500 mg PO QID #40 tablet
[2016-09-15 08:24] LABS: Bilirubin SMALL (NEGATIVE); Blood NEGATIVE Ery/ul (0-5); Collection Type VOID; Glucose NEGATIVE (NEGATIVE); Leukocyte Esterase NEGATIVE (NEGATIVE)
[2016-09-15 08:25] LABS: ADD URINE CULTURE? NO (NO); COMPLETE URINE MICROSCOPIC? NO
--- NOTE | 2016-09-15 08:34 | XRAY ---
Indication: Abdominal pain. Multiple contiguous axial images obtained through the abdomen and pelvis using 80 cc Isovue 370 contrast only. Comparison: CT renal stone study October 17, 2009. Study slightly degraded by patient body habitus. Lung bases demonstrate stable right lower lobe calcified granuloma. No infiltrate or effusion. Heart is not enlarged. Noncontrasted stomach and bowel loops appear nonobstructed. Normal appendix. Descending colon now demonstrates minimal pericolonic stranding, possible colitis. Minimal sigmoid diverticulosis without diverticulitis. No free fluid/air. Spleen remains enlarged measuring 13 cm. Again previous cholecystectomy. Remaining liver, pancreas, spleen, general glands, kidneys, ureters, bladder, uterus, and aorta appear unremarkable. No pathologic retroperitoneal lymphadenopathy. Osseous structures intact again with lumbosacral Junction degenerative changes. Impression: 1. Minimal descending colon stranding. Rule out colitis. 2. New sigmoid diverticulosis without diverticulitis. 3. Again splenomegaly. CT DI 23.68
[2016-09-15] MEDS ORDERED: MORPHINE SULFATE 10 MG/ML IV ONE (08:47)
[2016-09-15] MEDS ORDERED: Levofloxacin 500MG/100ML D5W 500 MG/100 ML BAG IV STA (08:50)
[2016-09-15] MEDS ORDERED: MORPHINE SULFATE 10 MG/ML ONE (09:07)
[2016-09-15] MEDS ORDERED: Levofloxacin 500MG/100ML D5W 500 MG/100 ML BAG IV ONE (09:08)
--- NOTE | 2016-09-15 09:10 | XRAY ---
Indication: Pain following fall 2 weeks ago. Comparison: December 01, 2011. 2 views of the left lower leg demonstrates moderate heel spurs and stable small proximal tibial shaft healed fibrous cortical defect. No new/acute bony, articular, or soft tissue findings.
[2016-09-15 09:34] VITALS: BP 118/68
[2016-09-15 10:17] VITALS: O2SAT 98
[2016-09-15 10:29] VITALS: PULSE 54
== END 2016-09-15 10:29 | disposition home or self-care (01) ==
LOC: ED 06:37
DX: K52.9 Noninfective gastroenteritis and colitis, unspecified (principal)
CPT/HCPCS: 36000; 36415; 73590; 74177; 80053; 80307; 81002; 82150; 83690; 84703; 85025; 87040; 96360; 96361; 96365; 96374; 96375; 99284; J1956; J2270; J2405

== ENCOUNTER 2016-10-15 06:03 | Day surgery (SDC) | payer BC ==
[2016-10-15] MEDS ORDERED: Lactated Ringers 1,000 ML IV ONE (06:22)
[2016-10-15] MEDS ORDERED: Lactated Ringers 1,000 ML IV SCH (06:30)
[2016-10-15] MEDS ORDERED: DIPRIVAN 200 MG/20 ML IV ONE (08:00)
[2016-10-15] MEDS ORDERED: Versed 2 MG/2 ML Injection IV ONE (08:00)
--- NOTE | 2016-10-15 08:15 | OP ---
SURGERY DATE/TIME: 10/15/2016 0741 PREOPERATIVE DIAGNOSIS: Abdominal pain. POSTOPERATIVE DIAGNOSIS: Normal colon. PROCEDURE: Colonoscopy. SURGEON: Dr. Gaona. ANESTHESIA: Medications given by anesthesia department. HISTORY: The patient is a 45 year-old white female who presents now with complaint of abdominal pain. She was hospitalized for one day for an episode of colitis which was apparently seen on CT scan approximately six weeks ago. The patient was treated with antibiotics and sent home and is now felt the need to have endoscopic evaluation. She was appraised of the risks of the procedure including the risk of perforation, phlebitis, untoward reaction to medication, bleeding and missed lesions. The patient verbalized her understanding and desired to have the procedure performed. DESCRIPTION OF PROCEDURE: The patient was given the medications by the anesthesia department. She had continuous pulse oximetry, ECG monitoring, intermittent blood pressure monitoring and tidal CO2 monitoring during the examination. She was placed in the left lateral decubitus position. A digital rectal examination was performed and revealed normal anal sphincter tone and no masses. The flexible Olympus pediatric colonoscope was used to intubate the rectum. A view of the colon was developed sequentially to the cecum. Upon insertion and withdrawal, including a retroflex view in the rectum, no mucosal lesions were encountered. The scope was removed from the patient who tolerated the procedure well and was sent back to OP recovery in good condition. The prep was noted to be fair to poor.
[2016-10-15 11:21] VITALS: O2SAT 99
[2016-10-15 11:25] VITALS: BP 145/77; PULSE 57
== END 2016-10-15 10:00 | disposition home or self-care (01) ==
LOC: SDC 06:03
PROVIDERS: ATTEND Family Medicine
PROC: 0DJD8ZZ Inspection of Lower Intestinal Tract, Via Natural or Artificial Opening Endoscopic (ICD-10-PCS; principal; 2016-10-15)
DX: R10.9 Unspecified abdominal pain (principal)
CPT/HCPCS: 00810; J2250; J2704

== ENCOUNTER 2016-11-09 06:05 | Day surgery (SDC) | payer BC ==
[2016-11-09] MEDS ORDERED: Ketamine HCl 50 MG/ML IV ONE (06:06)
[2016-11-09] MEDS ORDERED: DIPRIVAN 200 MG/20 ML IV ONE (06:06)
[2016-11-09] MEDS ORDERED: Lactated Ringers 1,000 ML IV ONE (06:28)
[2016-11-09] MEDS ORDERED: Lactated Ringers 1,000 ML IV SCH (07:00)
[2016-11-09 08:12] LABS: Bilirubin NEGATIVE (NEGATIVE); COMPLETE URINE MICROSCOPIC? YES; Collection Type CCMS; Glucose NEGATIVE (NEGATIVE); Leukocyte Esterase TRACE (NEGATIVE); WBC 0-2 /HPF (0-5)
[2016-11-09 08:13] LABS: Bacteria FEW /HPF (NEGATIVE); Epithelial Cells MODERATE /HPF (FEW)
[2016-11-09 08:34] VITALS: BP 128/65; PULSE 82; O2SAT 99
--- NOTE | 2016-11-09 09:55 | OP ---
SURGERY DATE/TIME: 11/09/2016 0656 PREOPERATIVE DIAGNOSIS: Persistent epigastric pain. POSTOPERATIVE DIAGNOSES: 1) Mild gastritis. 2) Few gastric fundic gland polyps. PROCEDURE: Esophagogastroduodenoscopy with biopsy. SURGEON: Dr. Gaona. ANESTHESIA: Medications were given by the anesthesia department. BRIEF HISTORY: The patient is a 45 year old white female who presents now for endoscopic evaluation. She has previously had cholecystectomy. She is on omeprazole without relief of her discomfort. The patient is felt the need to have endoscopic evaluation. She was appraised of the risks of the procedure including the risk of perforation, phlebitis, untoward reaction to medication, bleeding and missed lesions. The patient verbalized her understanding and desired to have the procedure performed. DESCRIPTION OF PROCEDURE: The patient was given the medications by the anesthesia department. She had continuous pulse oximetry, ECG monitoring, intermittent blood pressure monitoring and tidal CO2 monitoring during the examination. She was placed in the left lateral decubitus position. A bite block was placed and the flexible Olympus gastroscope was used to intubate the oropharynx. A view of the larynx was obtained which was normal. The scope was easily introduced in the esophagus which was this appeared to be normal throughout its length. The stomach was entered where normal gastric rugal folds were seen and these distended nicely with insufflation of air. The scope was passed along the greater curvature of the stomach to the antrum. The pylorus is encountered and intubated. The duodenum inspected and found to be normal. The scope was withdrawn towards the stomach. Again, a retroflex view was obtained of the lesser curvature, fundus and cardia regions of the stomach. There was noted to be a few scattered what appeared to be gastric fundic gland polyps which appeared to be benign in nature. The scope was then redirected towards the antrum and biopsies were obtained to rule out the presence of Helicobacter pylori-type organisms. The scope was then removed from the patient who tolerated the procedure well and was sent back to the hospital [facility] in good condition.
== END 2016-11-09 08:43 | disposition home or self-care (01) ==
LOC: SDC 06:05
PROVIDERS: ATTEND Family Medicine
PROC: 0DB78ZX Excision of Stomach, Pylorus, Via Natural or Artificial Opening Endoscopic, Diagnostic (ICD-10-PCS; principal; 2016-11-09)
DX: K29.70 Gastritis, unspecified, without bleeding (principal); K31.7 Polyp of stomach and duodenum
CPT/HCPCS: 00740; 36415; 81000; 88305; J2704

== ENCOUNTER 2016-11-17 00:46 | Emergency (ER) | payer BC ==
[2016-11-17] MEDS ORDERED: BABY ASPIRIN 81 MG CHEW PO ONE (01:23)
[2016-11-17] MEDS ORDERED: TORAdol 30 mg Injection IV ONE (01:26)
--- NOTE | 2016-11-17 01:27 | ERPHSYRPT ---
- History of Present Illness Time Seen by Provider: 11/17/16 01:15 Source: patient, family () Exam Limitations: no limitations Patient Subjective Stated Complaint: pt states she was taken off of her arthritis pill approx 1 month ago and has been having increased back pain radiating down both legs since. Triage Nursing Assessment: pt alert and oriented, answers questions approp. tearful at times, restless in bed. respirations nonlabored with lungs cta. pt moves bilat lower ext without diff. pedal pulses, cap refill, sensation to bilat lower ext wnl. Physician History: FOR THE PAST 2 WEEKS PT HAS HAD INTERMITTENT DULL/ACHY LEFT ANTERIOR CHEST PAIN LASTING UP TO 2 MINUTES PRE EPISODE; FOR THE PAST WEEK LOW BACK PAIN RADIATING TO THE FEET; FOR THE PAST HOUR A FRONTAL HEADACHE. PT ALSO STATES HER FEET HAVE BEEN SWELLING INTERMITTENTLY FOR THE PAST YEAR. REPORTEDLY PT FELL IN AUGUST 2016 AND SINCE HAS HAD A NORMAL LUMBAR MRI WITH NO INJURY/ACCIDENT SINCE THE MRI. Allergies/Adverse Reactions: cephalexin monohydrate [From Keflex] Allergy (Intermediate, Verified 11/17/16 01 :24) Rash Penicillins Allergy (Intermediate, Verified 11/17/16 01:24) Rash prednisone Allergy (Intermediate, Verified 11/17/16 01:24) Rash Home Medications: Lisinopril 20 mg PO DAILY 09/12/11 [History] Multivitamin W/Iron, Minerals [Unicap Sr] 1 each PO DAILY 09/12/11 [History] Zolpidem Tartrate 10 mg [Ambien 10 MG] 10 mg PO HS 09/12/11 [History] Cyclobenzaprine HCl 10 mg [Cyclobenzaprine 10 MG] 10 mg PO TID PRN PRN [History] Buspirone HCl 15 mg PO DAILY 11/10/13 [History] Potassium Chloride [Klor-Con 8] 8 meq PO DAILY 11/12/13 [History] Alprazolam 0.5 mg PO DAILY PRN PRN 05/13/16 [History] Citalopram Hydrobromide [Celexa] 60 mg PO DAILY 05/13/16 [History] Hydrocodone/APAP 10/325 mg [[place] 10/325 MG Tablet] 1 tab PO Q6H PRN PRN 05/13/16 [History] Furosemide 20 mg [Lasix 20 mg] 40 mg PO DAILY 08/27/16 [History] Hx Tetanus, Diphtheria Vaccination/Date Given: No Hx Influenza Vaccination/Date Given: No Hx Pneumococcal Vaccination/Date Given: No Immunizations Up to Date: No - Review of Systems Cardiac: Chest Pain Musculoskeletal: Back Pain Neurological: Headache All Other Systems: Reviewed and Negative - Past Medical History Pertinent Past Medical History: Yes Neurological History: No Pertinent History ENT History: No Pertinent History Cardiac History: Arrhythmia, Hypertension Respiratory History: No Pertinent History Endocrine Medical History: No Pertinent History Musculoskeletal History: Arthritis GI Medical History: GERD, Gallbladder Disease, Other History: No Pertinent History Psycho-Social History: Anxiety, Depression, Panic Disorder Female Reproductive Disorders: Pelvic Inflammatory Disease Other Medical History: anemia - Past Surgical History Past Surgical History: Yes Neuro Surgical History: No Pertinent History Cardiac: No Pertinent History Respiratory: No Pertinent History Gastrointestinal: Cholecystectomy Genitourinary: No Pertinent History Musculoskeletal: Other Female Surgical History: Section, Tubal Ligation, Other Other Surgical History: back surgery disc pain,nerve removed,, nodule taken off stomach, x 2, ablation uterine - Social History Smoking Status: Never smoker Exposure to second hand smoke: No Drug Use: none Patient Lives Alone: No Significant Family History: no pertinent family hx - Female History Hx Last Menstrual Period: ablation Hx Now: No - Nursing Vital Signs Nursing Vital Signs: Initial Vital Signs Temperature 97.3 F 11/17/16 01:07 Pulse Rate 58 L 11/17/16 01:07 Respiratory Rate 20 11/17/16 01:07 Blood Pressure 143/65 11/17/16 01:07 O2 Sat by Pulse Oximetry 98 11/17/16 01:07 Pain Scale Pain Intensity [] 10 Pain Intensity 10 - Physical Exam General Appearance: alert Eye Exam: PERRL/EOMI Ears, Nose, Throat Exam: TMs normal, pharynx normal, moist mucous membranes Neck Exam: normal inspection Respiratory Exam: lungs clear Cardiovascular Exam: normal heart sounds Gastrointestinal/Abdomen Exam: soft, normal bowel sounds Back Exam: normal range of motion, No vertebral tenderness Extremity Exam: normal range of motion, No pedal edema Neurologic Exam: alert, cooperative, sensation nml, No motor deficits Skin Exam: warm, dry SpO2 Interpretation: normal SpO2: 98 Oxygen Delivery: Room Air - Course Nursing assessment & vital signs reviewed: Yes EKG Interpreted by Me: RATE (59), Sinus Jez, NORMAL AXIS, NORMAL INTERVALS - Radiology Exams Chest X-ray Interpretation: Interpreted by me, No Pneumonia Ordered Tests: Active Orders 24 hr Category Date Time Status Miller First STAT Care 11/17/16 01:25 Active EKG-ER Only STAT Care 11/17/16 01:23 Active IV Insertion STAT Care 11/17/16 01:23 Active Pulse Oximetry (ED) STAT Care 11/17/16 01:23 Active CHEST 2 VIEWS (PA AND LAT) Stat Exams 11/17/16 01:24 Taken AMYLASE Stat Lab 11/17/16 01:40 Completed CBC W DIFF Stat Lab 11/17/16 01:40 Completed CMP Stat Lab 11/17/16 01:40 Completed HCG QUALITATIVE,SERUM Stat Lab 11/17/16 01:40 Completed LIPASE Stat Lab 11/17/16 01:40 Completed MAGNESIUM Stat Lab 11/17/16 01:40 Completed TROPONIN Q3H Lab 11/17/16 01:40 Completed TROPONIN Q3H Lab 11/17/16 04:30 Ordered TROPONIN Q3H Lab 11/17/16 07:30 Ordered TROPONIN Q3H Lab 11/17/16 10:30 Ordered TROPONIN Q3H Lab 11/17/16 13:30 Ordered UA W/RFX UR CULTURE Stat Lab 11/17/16 02:51 Completed Medication Summary Generic Name Dose Route Start Last Admin Trade Name Freq PRN Reason Stop Dose Admin Sodium Chloride 1,000 mls @ 100 mls/hr 11/17/16 01:30 11/17/16 01:43 Sodium Chloride 0.9% 1000 Ml IV 12/17/16 01:29 100 mls/hr .Q10H HARI Administration Discontinued Medications Generic Name Dose Route Start Last Admin Trade Name Freq PRN Reason Stop Dose Admin Aspirin 324 mg 11/17/16 01:23 11/17/16 01:48 Baby Aspirin 81 Mg Chew PO 11/17/16 01:24 324 mg STAT ONE Administration Ketorolac Tromethamine 30 mg 11/17/16 01:26 11/17/16 01:43 Toradol 30 Mg Injection IV 11/17/16 01:27 30 mg STAT ONE Administration Ketorolac Tromethamine Confirm 11/17/16 01:40 Toradol 30 Mg Injection Administered 11/17/16 01:41 Dose 30 mg .ROUTE .STK-MED ONE Potassium Chloride 10 meq 11/17/16 02:34 11/17/16 02:37 Klor Con 10 Meq PO 11/17/16 02:35 10 meq STAT ONE Administration Potassium Chloride Confirm 11/17/16 02:36 Klor Con 10 Meq Administered 11/17/16 02:37 Dose 10 meq PO .STK-MED ONE Lab/Rad Data: Laboratory Result Diagrams 11/17/16 01:40 11/17/16 01:40 Laboratory Results 11/17/16 11/17/16 11/17/16 Range/Units 02:51 01:40 01:40 WBC (4.0-10.5) K/mm3 RBC (4.1-5.4) M/mm3 Hgb (12.0-16.0) gm/dl Hct (35-47) % MCV (78-100) fl MCH (26-32) pg MCHC (32-36) g/dl RDW (11.5-14.0) % Plt Count (150-450) K/mm3 MPV (6-9.5) fl Gran % (36.0-66.0) % Lymphocytes % (24.0-44.0) % Monocytes % (0.0-12.0) % Eosinophils % (0.00-5.0) % Basophils % (0.0-0.4) % Basophils # (0-0.4) Sodium (136-145) mEq/L Potassium (3.5-5.1) mEq/L Chloride (98-107) mEq/L Carbon Dioxide (21-32) mEq/L Anion Gap (5-15) MEQ/L BUN (9-20) mg/dL Creatinine (0.55-1.30) mg/dl Estimated GFR ML/MIN Glucose (70-110) MG/DL Calcium (8.5-10.1) mg/dL Magnesium (1.8-2.4) mg/dL Total Bilirubin (0.2-1.0) mg/dL AST (15-37) U/L ALT (12-78) U/L Alkaline Phosphatase (46-116) U/L Troponin I < 0.017 (0.000-0.056) ng/ml Serum Total Protein (6.4-8.2) gm/dL Albumin (3.4-5.0) g/dL Amylase (25-115) U/L Lipase (73-393) U/L Serum , Qual NEGATIVE (Negative) Ur Collection Type VOID Urine Color YELLOW (YELLOW) Urine Appearance SLIGHTLY CLOUDY (CLEAR) Urine pH 5.0 (5-6) Ur Specific [place] 1.025 (1.005-1.025) Urine Protein NEGATIVE (Negative) Urine Ketones NEGATIVE (NEGATIVE) Urine Blood NEGATIVE (0-5) Julian/ul Urine Nitrite NEGATIVE (NEGATIVE) Urine Bilirubin NEGATIVE (NEGATIVE) Urine Urobilinogen NORMAL (0-1) mg/dL Ur Leukocyte Esterase NEGATIVE (NEGATIVE) Urine Glucose NEGATIVE (NEGATIVE) mg/dL Specimen Received 11/17/16 0250 11/17/16 11/17/16 Range/Units 01:40 01:40 WBC 9.2 (4.0-10.5) K/mm3 RBC 4.27 (4.1-5.4) M/mm3 Hgb 12.7 (12.0-16.0) gm/dl Hct 39.7 (35-47) % MCV 93.0 (78-100) fl MCH 29.7 (26-32) pg MCHC 32.0 (32-36) g/dl RDW 14.4 H (11.5-14.0) % Plt Count 259 (150-450) K/mm3 MPV 8.9 (6-9.5) fl Gran % 67.2 H (36.0-66.0) % Lymphocytes % 21.7 L (24.0-44.0) % Monocytes % 9.3 (0.0-12.0) % Eosinophils % 1.6 (0.00-5.0) % Basophils % 0.2 (0.0-0.4) % Basophils # 0.02 (0-0.4) Sodium 140 (136-145) mEq/L Potassium 3.4 L (3.5-5.1) mEq/L Chloride 103 (98-107) mEq/L Carbon Dioxide 29.5 (21-32) mEq/L Anion Gap 11.0 (5-15) MEQ/L BUN 11 (9-20) mg/dL Creatinine 0.79 (0.55-1.30) mg/dl Estimated GFR > 60 ML/MIN Glucose 105 (70-110) MG/DL Calcium 9.5 (8.5-10.1) mg/dL Magnesium 2.0 (1.8-2.4) mg/dL Total Bilirubin 0.40 (0.2-1.0) mg/dL AST 11 L (15-37) U/L ALT 8 L (12-78) U/L Alkaline Phosphatase 76 (46-116) U/L Troponin I (0.000-0.056) ng/ml Serum Total Protein 7.6 (6.4-8.2) gm/dL Albumin 4.0 (3.4-5.0) g/dL Amylase 42 (25-115) U/L Lipase 93 (73-393) U/L Serum , Qual (Negative) Ur Collection Type Urine Color (YELLOW) Urine Appearance (CLEAR) Urine pH (5-6) Ur Specific [place] (1.005-1.025) Urine Protein (Negative) Urine Ketones (NEGATIVE) Urine Blood (0-5) Julian/ul Urine Nitrite (NEGATIVE) Urine Bilirubin (NEGATIVE) Urine Urobilinogen (0-1) mg/dL Ur Leukocyte Esterase (NEGATIVE) Urine Glucose (NEGATIVE) mg/dL Specimen Received - Departure Time of Disposition: 03:12 Departure Disposition: Home Clinical Impression: CHEST PAIN, LOW BACK PAIN, MILD HYPOKALEMIA Condition: Stable Critical Care Time: No Referrals: KARLA [place] [Primary Care Provider] - Instructions: Low Back Pain, Chest Pain Additional Instructions: FOLLOW UP WITH PRIVATE DOCTOR TOMORROW.
[2016-11-17] MEDS ORDERED: Sodium Chloride 0.9% 1000 ML 1,000 ML IV SCH (01:30)
[2016-11-17] MEDS ORDERED: TORAdol 30 mg Injection ONE (01:40)
[2016-11-17] MEDS ORDERED: Sodium Chloride 0.9% 1000 ML 1,000 ML ONE (01:40)
[2016-11-17 01:45] LABS: BASOPHIL % 0.2 % (0.0-0.4); Eosinophil % 1.6 % (0.00-5.0); Granulocytes % 67.2 % (36.0-66.0); Lymphocytes % 21.7 % (24.0-44.0); Mean Corpuscular Hemoglobin 29.7 pg (26-32); Mean Platelet Volume 8.9 fl (6-9.5); Monocytes % 9.3 % (0.0-12.0); Platelet Count 259 K/mm3 (150-450); Red Blood Count 4.27 M/mm3 (4.1-5.4); Red Cell Distribution Width 14.4 % (11.5-14.0); White Blood Count 9.2 K/mm3 (4.0-10.5)
[2016-11-17 01:46] VITALS: O2SAT 98
[2016-11-17 02:07] LABS: ALKALINE PHOSPHATASE 76 U/L (46-116); BLOOD UREA NITROGEN 11 mg/dL (9-20); CHLORIDE 103 mEq/L (98-107); Carbon Dioxide 29.5 mEq/L (21-32); Glucose 105 MG/DL (70-110); LIPASE 93 U/L (73-393); Potassium 3.4 mEq/L (3.5-5.1); SGOT/AST 11 U/L (15-37); SGPT/ALT 8 U/L (12-78); SODIUM 140 mEq/L (136-145); Total Protein 7.6 gm/dL (6.4-8.2)
[2016-11-17] MEDS ORDERED: Klor Con 10 MEQ PO ONE ×2 (02:34→02:36)
[2016-11-17 02:54] LABS: ADD URINE CULTURE? NO (NO); Bilirubin NEGATIVE (NEGATIVE); Blood NEGATIVE Ery/ul (0-5); COMPLETE URINE MICROSCOPIC? NO; Collection Type VOID; Glucose NEGATIVE (NEGATIVE); Leukocyte Esterase NEGATIVE (NEGATIVE)
[2016-11-17 03:25] VITALS: BP 110/56; PULSE 56
--- NOTE | 2016-11-17 09:17 | XRAY ---
Indication: Chest pain. Comparison: August 28, 2016. PA/lateral chest remains hyperinflated and clear. Heart is not enlarged. Bony thorax intact. Impression: Stable nonacute hyperinflated chest.
== END 2016-11-17 03:31 | disposition home or self-care (01) ==
LOC: ED 00:46
DX: R07.89 Other chest pain (principal); M54.5 Low back pain; E87.6 Hypokalemia; I10 Essential (primary) hypertension; Z79.899 Other long term (current) drug therapy
CPT/HCPCS: 36000; 36415; 71020; 80053; 81002; 82150; 83690; 83735; 84484; 84703; 85025; 93005; 93041; 96360; 96361; 96365; 96366; 96374; 99284; 99285; J1885; A9270-GY

== ENCOUNTER 2018-06-26 19:38 | Emergency (ER) | payer BC ==
--- NOTE | 2018-06-26 20:12 | ERPHSYRPT ---
- History of Present Illness Time Seen by Provider: 06/26/18 20:12 Historian: patient, family Exam Limitations: no limitations Physician History: 47 y/o morbidly obese white female s/p cholecystectomy and btl in past and with h/o colitis and pid, presents with left lower quad abd pain since last pm. pt has had similar sx intermittently over a year. pt denies n/v/d and denies vaginal discharge. pt underwent a colonscopy a year ago and it was normal per her report. Timing/Duration: yesterday, intermittent, worse Activities at Onset: none Quality: sharpness, stabbing Abdominal Pain Onset Location: LLQ Pain Radiation: no radiation Severity of Pain-Max: moderate Severity of Pain-Current: moderate Modifying Factors: Improves With: movement Associated Symptoms: denies symptoms Previous symptoms: same symptoms as today Allergies/Adverse Reactions: cephalexin monohydrate [From Keflex] Allergy (Intermediate, Verified 06/26/18 20 :29) Rash Penicillins Allergy (Intermediate, Verified 06/26/18 20:29) Rash prednisone Allergy (Intermediate, Verified 06/26/18 20:29) Rash Home Medications: Lisinopril 20 mg PO DAILY 09/12/11 [History] Multivitamin W/Iron, Minerals [Unicap Sr] 1 each PO DAILY 09/12/11 [History] Zolpidem Tartrate 10 mg [Ambien 10 MG] 10 mg PO HS 09/12/11 [History] Cyclobenzaprine HCl 10 mg [Cyclobenzaprine 10 MG] 10 mg PO TID PRN PRN [History] Buspirone HCl 15 mg PO DAILY 11/10/13 [History] Potassium Chloride [Klor-Con 8] 8 meq PO DAILY 11/12/13 [History] Citalopram Hydrobromide [Celexa] 60 mg PO DAILY 05/13/16 [History] Furosemide 20 mg [Lasix 20 mg] 60 mg PO DAILY 08/27/16 [History] Celecoxib [Celebrex] 200 mg PO BID 06/26/18 [History] Cyanocobalamin (Vitamin B-12) [B-12] 2,500 mcg PO DAILY 06/26/18 [History] Gabapentin 300 mg PO TID 06/26/18 [History] PANTOPRAZOLE 40 mg Tablet [Protonix 40MG Tablet] 40 mg PO QPM 06/26/18 [ History] Hx Tetanus, Diphtheria Vaccination/Date Given: No Hx Influenza Vaccination/Date Given: No Hx Pneumococcal Vaccination/Date Given: No - Review of Systems Constitutional: No Symptoms Eyes: No Symptoms Ears, Nose, & Throat: No Symptoms Respiratory: No Symptoms Cardiac: No Symptoms Abdominal/Gastrointestinal: Abdominal Pain (llq), No Nausea, No Vomiting, No Diarrhea Genitourinary Symptoms: No Symptoms, No Dysuria, No Frequency, No Hematuria Musculoskeletal: No Symptoms Skin: No Symptoms Neurological: No Symptoms Psychological: No Symptoms Endocrine: No Symptoms Hematologic/Lymphatic: No Symptoms Immunological/Allergic: No Symptoms All Other Systems: Reviewed and Negative - Past Medical History Pertinent Past Medical History: Yes Neurological History: No Pertinent History ENT History: No Pertinent History Cardiac History: Arrhythmia, Hypertension Respiratory History: No Pertinent History Endocrine Medical History: No Pertinent History Musculoskeletal History: Arthritis GI Medical History: GERD, Gallbladder Disease, Other History: No Pertinent History Psycho-Social History: Anxiety, Depression, Panic Disorder Female Reproductive Disorders: Pelvic Inflammatory Disease Other Medical History: anemia - Past Surgical History Past Surgical History: Yes Neuro Surgical History: No Pertinent History Cardiac: No Pertinent History Respiratory: No Pertinent History Gastrointestinal: Cholecystectomy Genitourinary: No Pertinent History Musculoskeletal: Other Female Surgical History: Section, Tubal Ligation, Other Other Surgical History: back surgery disc pain,nerve removed,, nodule taken off stomach, x 2, ablation uterine - Social History Smoking Status: Never smoker Exposure to second hand smoke: No Drug Use: none Patient Lives Alone: No Significant Family History: no pertinent family hx - Nursing Vital Signs Nursing Vital Signs: Initial Vital Signs Temperature 98.7 F 06/26/18 20:24 Pulse Rate 67 06/26/18 20:24 Respiratory Rate 20 06/26/18 20:24 Blood Pressure 138/77 06/26/18 20:24 O2 Sat by Pulse Oximetry 95 06/26/18 20:24 Pain Scale Pain Intensity 4 - Physical Exam General Appearance: mild distress, alert, anxiety Eye Exam: PERRL/EOMI Ears, Nose, Throat Exam: normal ENT inspection, moist mucous membranes Neck Exam: normal inspection, non-tender, supple, full range of motion Respiratory Exam: normal breath sounds, lungs clear, No chest tenderness, No respiratory distress Cardiovascular Exam: regular rate/rhythm, normal heart sounds, normal peripheral pulses Gastrointestinal/Abdomen Exam: soft, normal bowel sounds, tenderness (mild localized llq), No guarding, No rebound Pelvic Exam: not done Rectal Exam: not done Back Exam: normal inspection, normal range of motion, No CVA tenderness, No vertebral tenderness Extremity Exam: normal inspection, normal range of motion, pelvis stable Neurologic Exam: alert, oriented x 3, cooperative, rn cardiac cath II-XII nml as tested Skin Exam: normal color, warm, dry Lymphatic Exam: No adenopathy SpO2 Interpretation: normal O2 Delivery: Room Air - Course Nursing assessment & vital signs reviewed: Yes Ordered Tests: Active Orders 24 hr Category Date Time Status IV Insertion STAT Care 06/26/18 20:26 Active ABDOMEN AND PELVIS W/0 CONTRAS [CT] Stat Exams 06/26/18 20:27 Taken AMYLASE Stat Lab 06/26/18 20:30 Completed CBC W DIFF Stat Lab 06/26/18 20:30 Completed CMP Stat Lab 06/26/18 20:30 Completed LIPASE Stat Lab 06/26/18 20:30 Completed Lactic Acid Stat Lab 06/26/18 20:26 Completed UA W/RFX UR CULTURE Stat Lab 06/26/18 20:34 Completed Medication Summary Discontinued Medications Generic Name Dose Route Start Last Admin Trade Name Freq PRN Reason Stop Dose Admin Al Hydrox/Mg Hydrox/Simethicone Confirm 06/26/18 21:59 Maalox Es 30 Ml Unit Dose Administered 06/26/18 22:00 Dose 30 ml .ROUTE .STK-MED ONE Hydromorphone HCl 1 mg 06/26/18 20:26 06/26/18 20:43 Hydromorphone 1 Mg/Ml Ampule IV 06/26/18 20:27 1 mg STAT ONE Administration Hydromorphone HCl Confirm 06/26/18 20:37 Hydromorphone 1 Mg/Ml Ampule Administered 06/26/18 20:38 Dose 1 mg .ROUTE .STK-MED ONE Sodium Chloride 1,000 mls @ 999 mls/hr 06/26/18 20:26 06/26/18 20:40 Sodium Chloride 0.9% 1000 Ml IV 06/26/18 21:26 999 mls/hr .Q1H1M STA Administration Sodium Chloride Confirm 06/26/18 20:37 Sodium Chloride 0.9% 1000 Ml Administered 06/26/18 20:38 Dose 1,000 mls @ ud .ROUTE .STK-MED ONE Lidocaine HCl Confirm 06/26/18 21:59 Xylocaine Hcl Viscous * Administered 06/26/18 22:00 Dose 15 ml .ROUTE .STK-MED ONE Magnesium Hydroxide 45 ml 06/26/18 21:44 Gi Cocktail 45 Ml (Maalox/Lidocaine) PO 06/26/18 21:45 STAT ONE Ondansetron HCl 4 mg 06/26/18 20:26 06/26/18 20:41 Zofran 4 Mg/2 Ml Vial IV 06/26/18 20:27 4 mg STAT ONE Administration Ondansetron HCl Confirm 06/26/18 20:37 Zofran 4 Mg/2 Ml Vial Administered 06/26/18 20:38 Dose 4 mg .ROUTE .STK-MED ONE Lab/Rad Data: Laboratory Result Diagrams 06/26/18 20:30 06/26/18 20:30 Laboratory Results 06/26/18 06/26/18 06/26/18 Range/Units 20:34 20:30 20:30 WBC 6.1 (4.0-10.5) K/mm3 RBC 4.35 (4.1-5.4) M/mm3 Hgb 13.2 (12.0-16.0) gm/dl Hct 40.6 (35-47) % MCV 93.3 (78-100) fl MCH 30.3 (26-32) pg MCHC 32.5 (32-36) g/dl RDW 14.3 H (11.5-14.0) % Plt Count 272 (150-450) K/mm3 MPV 9.2 (6-9.5) fl Gran % 73.2 H (36.0-66.0) % Eos # (Auto) 0.04 (0-0.5) Absolute Lymphs (auto) 1.05 (1.0-4.6) Absolute Monos (auto) 0.52 (0.0-1.3) Lymphocytes % 17.1 L (24.0-44.0) % Monocytes % 8.5 (0.0-12.0) % Eosinophils % 0.7 (0.00-5.0) % Basophils % 0.5 (0.0-0.4) % Absolute Granulocytes 4.49 (1.4-6.9) Basophils # 0.03 (0-0.4) Sodium 139 (137-145) mmol/L Potassium 3.6 (3.5-5.1) mmol/L Chloride 105 (98-107) mmol/L Carbon Dioxide 25 (22-30) mmol/L Anion Gap 13.4 (5-15) MEQ/L BUN 9 (7-17) mg/dL Creatinine 0.56 (0.52-1.04) mg/dL Estimated GFR > 60.0 ML/MIN Glucose 93 (74-106) mg/dL Lactic Acid (0.4-2.0) Calcium 9.4 (8.4-10.2) mg/dL Total Bilirubin 0.50 (0.2-1.3) mg/dL AST 18 (14-36) U/L ALT 21 (0-35) U/L Alkaline Phosphatase 72 (38-126) U/L Serum Total Protein 7.7 (6.3-8.2) g/dL Albumin 4.3 (3.5-5.0) g/dL Amylase 63 (30-110) U/L Lipase 27 (23-300) U/L Urine Color YELLOW (YELLOW) Urine Appearance SLIGHTLY CLOUDY (CLEAR) Urine pH 6.0 (5-6) Ur Specific [place] 1.024 (1.005-1.025) Urine Protein 30 (Negative) Urine Ketones NEGATIVE (NEGATIVE) Urine Blood NEGATIVE (0-5) Julian/ul Urine Nitrite NEGATIVE (NEGATIVE) Urine Bilirubin NEGATIVE (NEGATIVE) Urine Urobilinogen 4 (0-1) mg/dL Ur Leukocyte Esterase NEGATIVE (NEGATIVE) Urine WBC (Auto) NONE (0-5) /HPF Urine RBC (Auto) 11-15 (0-2) /HPF U Epithel Cells (Auto) RARE (FEW) /HPF Urine Bacteria (Auto) NONE (NEGATIVE) /HPF Urine Mucus (Auto) SLIGHT (NEGATIVE) /HPF Urine Culture Reflexed NO (NO) Urine Glucose NEGATIVE (NEGATIVE) mg/dL 06/26/18 Range/Units 20:26 WBC (4.0-10.5) K/mm3 RBC (4.1-5.4) M/mm3 Hgb (12.0-16.0) gm/dl Hct (35-47) % MCV (78-100) fl MCH (26-32) pg MCHC (32-36) g/dl RDW (11.5-14.0) % Plt Count (150-450) K/mm3 MPV (6-9.5) fl Gran % (36.0-66.0) % Eos # (Auto) (0-0.5) Absolute Lymphs (auto) (1.0-4.6) Absolute Monos (auto) (0.0-1.3) Lymphocytes % (24.0-44.0) % Monocytes % (0.0-12.0) % Eosinophils % (0.00-5.0) % Basophils % (0.0-0.4) % Absolute Granulocytes (1.4-6.9) Basophils # (0-0.4) Sodium (137-145) mmol/L Potassium (3.5-5.1) mmol/L Chloride (98-107) mmol/L Carbon Dioxide (22-30) mmol/L Anion Gap (5-15) MEQ/L BUN (7-17) mg/dL Creatinine (0.52-1.04) mg/dL Estimated GFR ML/MIN Glucose (74-106) mg/dL Lactic Acid 1.5 (0.4-2.0) Calcium (8.4-10.2) mg/dL Total Bilirubin (0.2-1.3) mg/dL AST (14-36) U/L ALT (0-35) U/L Alkaline Phosphatase (38-126) U/L Serum Total Protein (6.3-8.2) g/dL Albumin (3.5-5.0) g/dL Amylase (30-110) U/L Lipase (23-300) U/L Urine Color (YELLOW) Urine Appearance (CLEAR) Urine pH (5-6) Ur Specific [place] (1.005-1.025) Urine Protein (Negative) Urine Ketones (NEGATIVE) Urine Blood (0-5) Julian/ul Urine Nitrite (NEGATIVE) Urine Bilirubin (NEGATIVE) Urine Urobilinogen (0-1) mg/dL Ur Leukocyte Esterase (NEGATIVE) Urine WBC (Auto) (0-5) /HPF Urine RBC (Auto) (0-2) /HPF U Epithel Cells (Auto) (FEW) /HPF Urine Bacteria (Auto) (NEGATIVE) /HPF Urine Mucus (Auto) (NEGATIVE) /HPF Urine Culture Reflexed (NO) Urine Glucose (NEGATIVE) mg/dL - Progress Progress: improved, re-examined Progress Note: 06/26/18 21:55 ct abd/pelvis no acute intraabd process. appendix not seen. Counseled pt/family regarding: lab results, diagnosis, need for follow-up, rad results - Departure Departure Disposition: Home Clinical Impression: Recurrent left lower quadrant abdominal pain Condition: Stable Critical Care Time: No Referrals: KARLA [place] [Primary Care Provider] - Additional Instructions: drink plenty of fluids. follow up with primary doctor for further management Prescriptions: Hydrocodone/APAP 5/325 [[place] 5/325 mg] 1 each PO Q8H PRN PRN #6 tablet MDD 3 PRN Reason: Pain
[2018-06-26] MEDS ORDERED: Sodium Chloride 0.9% 1000 ML 1,000 ML IV STA (20:26)
[2018-06-26] MEDS ORDERED: Zofran 4 MG/2 ML VIAL IV ONE (20:26)
[2018-06-26] MEDS ORDERED: Hydromorphone 1 mg/ml Ampule IV ONE (20:26)
[2018-06-26] MEDS ORDERED: Hydromorphone 1 mg/ml Ampule ONE (20:37)
[2018-06-26] MEDS ORDERED: Sodium Chloride 0.9% 1000 ML 1,000 ML ONE (20:37)
[2018-06-26] MEDS ORDERED: Zofran 4 MG/2 ML VIAL ONE (20:37)
[2018-06-26 21:00] LABS: BASOPHIL % 0.5 % (0.0-0.4); Basophil (Absolute #) 0.03 (0-0.4); Eosinophil % 0.7 % (0.00-5.0); Eosinophil (Absolute #) 0.04 (0-0.5); Granulocyte Absolute (ANC) 4.49 (1.4-6.9); Granulocytes % 73.2 % (36.0-66.0); Hematocrit 40.6 % (35-47); Hemoglobin 13.2 gm/dl (12.0-16.0); Lymphocyte (Absolute #) 1.05 (1.0-4.6); Lymphocytes % 17.1 % (24.0-44.0); Mean Cell Volume 93.3 fl (78-100); Mean Corpuscular Hemoglobin 30.3 pg (26-32); Mean Corpuscular Hgb Concent. 32.5 g/dl (32-36); Mean Platelet Volume 9.2 fl (6-9.5); Monocyte (Absolute #) 0.52 (0.0-1.3); Monocytes % 8.5 % (0.0-12.0); Platelet Count 272 K/mm3 (150-450); Red Blood Count 4.35 M/mm3 (4.1-5.4); Red Cell Distribution Width 14.3 % (11.5-14.0); White Blood Count 6.1 K/mm3 (4.0-10.5)
[2018-06-26 21:12] LABS: Appearance SLIGHTLY CLOUDY (CLEAR); Bilirubin NEGATIVE (NEGATIVE); Blood NEGATIVE Ery/ul (0-5); Epithelial Cells RARE /HPF (FEW); Glucose NEGATIVE (NEGATIVE); Ketones NEGATIVE (NEGATIVE); Leukocyte Esterase NEGATIVE (NEGATIVE); Mucus SLIGHT /HPF (NEGATIVE); Nitrite NEGATIVE (NEGATIVE); Protein,Urine Dip 30 (Negative); Specific Gravity 1.024 (1.005-1.025); Urobilinogen 4 mg/dL (0-1)
[2018-06-26 21:13] LABS: ALBUMIN 4.3 g/dL (3.5-5.0); ALKALINE PHOSPHATASE 72 U/L (38-126); AMYLASE 63 U/L (30-110); ANION GAP 13.4 MEQ/L (5-15); BLOOD UREA NITROGEN 9 mg/dL (7-17); CHLORIDE 105 mmol/L (98-107); Calcium 9.4 mg/dL (8.4-10.2); Carbon Dioxide 25 mmol/L (22-30); Creatinine 1 0.56 mg/dL (0.52-1.04); Glucose 93 mg/dL (74-106); LIPASE 27 U/L (23-300); Potassium 3.6 mmol/L (3.5-5.1); SGOT/AST 18 U/L (14-36); SGPT/ALT 21 U/L (0-35); SODIUM 139 mmol/L (137-145); Total Protein 7.7 g/dL (6.3-8.2)
[2018-06-26] MEDS ORDERED: GI COCKTAIL 45 ML (Maalox/Lidocaine) PO ONE (21:44)
[2018-06-26] MEDS ORDERED: MAALOX ES 30 ML UNIT DOSE ONE (21:59)
[2018-06-26] MEDS ORDERED: XYLOCAINE HCl Viscous ONE (21:59)
[2018-06-26 22:29] VITALS: BP 133/67; PULSE 88; O2SAT 97
--- NOTE | 2018-06-27 09:11 | XRAY ---
Indication: Right lower quadrant pain 1.5 years. Multiple contiguous axial images obtained through the abdomen and pelvis without contrast as ordered. Comparison: September 15, 2016. Lung bases demonstrates new patchy right lower lobe interstitial alveolar opacity without consolidation/effusion. Heart is not enlarged. Noncontrasted stomach and bowel loops appear nonobstructed. Appendix not seen. Stable minimal sigmoid diverticulosis, 13.4 cm splenomegaly, and cholecystectomy. New nonobstructing right renal micro-calculus. Remaining liver, pancreas, spleen, adrenal glands, kidneys, ureters, bladder, uterus, and aorta appear unremarkable for noncontrast exam. Osseous structures intact again with lower lumbar degenerative changes. No ventral or inguinal hernias. Impression: 1. New nonobstructing right renal micro-calculus. 2. New patchy right lower lobe interstitial alveolar opacity. 3. Stable splenomegaly and sigmoid diverticulosis. 4. Remaining CT abdomen/pelvis without contrast exam is negative. CT DI 28.13
== END 2018-06-26 22:30 | disposition home or self-care (01) ==
LOC: ED 19:38
DX: R10.32 Left lower quadrant pain (principal); K21.9 Gastro-esophageal reflux disease without esophagitis; I10 Essential (primary) hypertension; M19.90 Unspecified osteoarthritis, unspecified site; F41.9 Anxiety disorder, unspecified; F32.9 Major depressive disorder, single episode, unspecified; N73.9 Female pelvic inflammatory disease, unspecified; Z79.899 Other long term (current) drug therapy; E66.01 Morbid (severe) obesity due to excess calories
CPT/HCPCS: 36000; 36415; 74176; 80053; 81001; 82150; 83605; 83690; 85025; 96360; 96374; 96375; 99284; J1170; J2405; A9270-GY

== ENCOUNTER 2018-07-15 14:12 | Emergency (ER) | payer BC ==
[2018-07-15 14:40] VITALS: O2SAT 98
--- NOTE | 2018-07-15 14:49 | ERPHSYRPT ---
- History of Present Illness Time Seen by Provider: 07/15/18 14:41 Source: patient Exam Limitations: no limitations Patient Subjective Stated Complaint: pt reports cough for 3 weeks, reports sore throat as well. states she is coughing up green sputum. states she was treated here, by Dr Gaona as well as Rupal Sawyer. Triage Nursing Assessment: pt is aox3, pupils perrl, afebrile, resps easy and non labored, lung sounds are clear throughout, radial pulses strong and equal, cap refill < 3 seconds, pt skin pink warm dry. Physician History: 47-year-old white female with history of arrhythmia high blood pressure arthritis GERD gallbladder disease anxiety, depression, panic disorder, Patient arrives with complaint of sore throat and a cough runny nose symptoms for 3 weeks. She states she was seen by her family doctor placed on clarithromycin also placed on Tussionex. She states the cough continues she has a sore throat. Past medical history includes arrhythmia, high blood pressure, arthritis, GERD, gallbladder disease, anxiety, depression, panic disorder, pelvic inflammatory disease, anemia. Past surgical history includes cholecystectomy, , tubal ligation, ask surgery, with the back pain, patient was 2 uterine ablation Timing/Duration: week(s) (3 weeks) Severity: moderate Modifying Factors: Improves With: nothing Associated Symptoms: cough, fever, No nausea, No vomiting, No abdominal pain, No shortness of breath, No heartburn, No diaphoresis, No chills, No chest pain, No headaches, No loss of appetite, No malaise, No rash, No syncope, No seizure, No weakness, No other Allergies/Adverse Reactions: cephalexin monohydrate [From Keflex] Allergy (Intermediate, Verified 07/15/18 14 :40) Rash Penicillins Allergy (Intermediate, Verified 07/15/18 14:40) Rash prednisone Allergy (Intermediate, Verified 07/15/18 14:40) Rash Home Medications: Lisinopril 20 mg PO DAILY 09/12/11 [History] Multivitamin W/Iron, Minerals [Unicap Sr] 1 each PO DAILY 09/12/11 [History] Zolpidem Tartrate 10 mg [Ambien 10 MG] 10 mg PO HS 09/12/11 [History] Cyclobenzaprine HCl 10 mg [Cyclobenzaprine 10 MG] 10 mg PO TID PRN PRN [History] Buspirone HCl 15 mg PO DAILY 11/10/13 [History] Potassium Chloride [Klor-Con 8] 8 meq PO DAILY 11/12/13 [History] Citalopram Hydrobromide [Celexa] 60 mg PO DAILY 05/13/16 [History] Furosemide 20 mg [Lasix 20 mg] 60 mg PO DAILY 08/27/16 [History] Celecoxib [Celebrex] 200 mg PO BID 06/26/18 [History] Cyanocobalamin (Vitamin B-12) [B-12] 2,500 mcg PO DAILY 06/26/18 [History] Gabapentin 300 mg PO TID 06/26/18 [History] PANTOPRAZOLE 40 mg Tablet [Protonix 40MG Tablet] 40 mg PO QPM 06/26/18 [ History] Hx Tetanus, Diphtheria Vaccination/Date Given: Yes Hx Influenza Vaccination/Date Given: No Hx Pneumococcal Vaccination/Date Given: No Immunizations Up to Date: Yes - Review of Systems Constitutional: No Fever, No Chills Eyes: No Symptoms Ears, Nose, & Throat: Throat Pain, No Ear Pain, No Ear Discharge, No Hearing Changes, No Tinnitus, No Nose Pain, No Nose Congestion, No Nose Discharge, No Sinus Drainage, No Epistaxis, No Mouth Pain, No Mouth Swelling, No Loose Teeth, No Throat Swelling, No Hoarse, No Painful Swallowing, No Snoring, No Stridor Respiratory: Cough, No Cyanosis, No Dyspnea, No Dyspnea on Exertion (JARRELL), No Stridor, No Wheezing Cardiac: No Chest Pain, No Edema, No Syncope Abdominal/Gastrointestinal: No Abdominal Pain, No Nausea, No Vomiting, No Diarrhea Genitourinary Symptoms: No Dysuria Musculoskeletal: No Back Pain, No Neck Pain Skin: No Rash Neurological: No Dizziness, No Focal Weakness, No Sensory Changes Psychological: No Symptoms Endocrine: No Symptoms All Other Systems: Reviewed and Negative - Past Medical History Pertinent Past Medical History: Yes Neurological History: No Pertinent History ENT History: No Pertinent History Cardiac History: Hypertension Respiratory History: No Pertinent History Endocrine Medical History: No Pertinent History Musculoskeletal History: Arthritis GI Medical History: GERD, Gallbladder Disease, Other History: No Pertinent History Psycho-Social History: Anxiety, Depression, Panic Disorder Female Reproductive Disorders: Pelvic Inflammatory Disease Other Medical History: anemia - Past Surgical History Past Surgical History: Yes Neuro Surgical History: No Pertinent History Cardiac: No Pertinent History Respiratory: No Pertinent History Gastrointestinal: Cholecystectomy Genitourinary: No Pertinent History Musculoskeletal: Other Female Surgical History: Section, Tubal Ligation, Other Other Surgical History: back surgery disc pain,nerve removed,, nodule taken off stomach, x 2, ablation uterine - Social History Smoking Status: Never smoker Exposure to second hand smoke: No Drug Use: none Patient Lives Alone: No Significant Family History: no pertinent family hx - Female History Hx Last Menstrual Period: 2015 ablation Hx Now: No - Nursing Vital Signs Nursing Vital Signs: Initial Vital Signs Temperature 98.0 F 07/15/18 14:28 Pulse Rate 63 07/15/18 14:28 Respiratory Rate 20 07/15/18 14:28 Blood Pressure 154/85 07/15/18 14:28 O2 Sat by Pulse Oximetry 98 07/15/18 14:28 Pain Scale Pain Intensity 8 - Physical Exam General Appearance: mild distress, alert Eye Exam: PERRL/EOMI, eyes nml inspection, other (fundi are unremarkable) Ears, Nose, Throat Exam: normal ENT inspection, TMs normal, pharynx normal, moist mucous membranes Neck Exam: normal inspection, non-tender, supple, full range of motion Respiratory Exam: normal breath sounds, lungs clear, No respiratory distress Cardiovascular Exam: regular rate/rhythm, normal heart sounds, normal peripheral pulses, capillary refill <2 sec Gastrointestinal/Abdomen Exam: soft, normal bowel sounds, No tenderness, No mass Back Exam: normal inspection, normal range of motion, No CVA tenderness, No vertebral tenderness Extremity Exam: normal inspection, normal range of motion, pelvis stable Neurologic Exam: alert, oriented x 3, cooperative, web retailer II-XII nml as tested, normal mood/affect, nml cerebellar function, nml station & gait, sensation nml, No motor deficits Skin Exam: normal color, warm, dry, No rash Lymphatic Exam: No adenopathy SpO2 Interpretation: normal (98%) SpO2: 98 - Course Nursing assessment & vital signs reviewed: Yes - Radiology Exams Chest X-ray Interpretation: Interpreted by me (chest x-ray: No acute disease process noted.) Ordered Tests: Active Orders 24 hr Category Date Time Status CHEST 1 VIEW (PORTABLE) Stat Exams 07/15/18 14:45 Taken Lab/Rad Data: Laboratory Results 07/15/18 Range/Units 15:00 Group A Strep Antibody NEGATIVE (NEGATIVE) - Progress Progress: improved Progress Note: 07/15/18 15:48 Morbidly obese white female arrives with complaint of cough for 3 weeks she states she is was on clarithromycin which was approximately a week ago she states she continues to cough she is allergic to penicillin and Keflex. X-ray of her chest x-ray today (my read) no acute disease process noted. Will go ahead and place patient on Zithromax Z-Jeremias. Patient is advised to try [id number] cough medications. It is noted that the patient is on MARLENA inhibitor should her cough continue she should discuss this with her family doctor. - Departure Departure Disposition: Home Clinical Impression: Persistent cough, Bronchitis Condition: Fair Critical Care Time: No Referrals: KARLA GAONA [Primary Care Provider] - Additional Instructions: Return home. Plenty of fluids. Zithromax Z-JEREMIAS as directed. [id number] cough medications as directed. Follow-up with your family doctor. Return for acute distress or for severe symptoms. It is noted that you are on an MARLENA inhibitor if you continue to cough despite your antibiotics discussed this with your family doctor. Prescriptions: Azithromycin 250 mg [Zithromax 250 MG TABLET] 0 mg PO ZPACK #6 tablet
[2018-07-15 16:00] VITALS: BP 118/78; PULSE 60
--- NOTE | 2018-07-15 17:55 | XRAY ---
Indication: Cough. Comparison: November 17, 2016. Portable chest remains hyperinflated and clear. Heart and mediastinal structures within normal limits. Bony thorax intact. No new/acute findings.
== END 2018-07-15 15:58 | disposition home or self-care (01) ==
LOC: ED 14:12
DX: R05 Cough (principal); J40 Bronchitis, not specified as acute or chronic; E66.01 Morbid (severe) obesity due to excess calories; K21.9 Gastro-esophageal reflux disease without esophagitis; M19.90 Unspecified osteoarthritis, unspecified site; F32.9 Major depressive disorder, single episode, unspecified; Z79.899 Other long term (current) drug therapy; I10 Essential (primary) hypertension; N73.9 Female pelvic inflammatory disease, unspecified
CPT/HCPCS: 71045; 87651; 99284

== ENCOUNTER 2018-11-13 15:36 | Emergency (ER) | payer BC | END 2018-11-13 17:50 | disposition home or self-care (01) | LOC: ED 15:36 ==

== ENCOUNTER 2019-06-10 14:52 | Inpatient (IN) | payer BC ==
[2019-06-10] MEDS ORDERED: MORPHINE SULFATE 4 MG INJ IV ONE (15:18)
[2019-06-10] MEDS ORDERED: Sodium Chloride 0.9% 1000 ML 1,000 ML IV STA (15:18)
[2019-06-10] MEDS ORDERED: Zofran 4 MG/2 ML VIAL IV ONE (15:21)
[2019-06-10] MEDS ORDERED: Zofran 4 MG/2 ML VIAL ONE (15:22)
--- NOTE | 2019-06-10 15:22 | ERPHSYRPT ---
- History of Present Illness Time Seen by Provider: 06/10/19 15:21 Historian: patient Exam Limitations: no limitations Patient Subjective Stated Complaint: pt reports abd pain starting yesterday. pt reports history of colitis and GERD. Triage Nursing Assessment: pt is aox3, pt appears in pain, tearful, pupils perrl , afebrile, resps easy and non labored, cap refill < 3 seconds, radial pulses strong and equal, abd soft, tender to the RUQ, pain localized to mid abdomen, pain radiates around the right upper abdomen to the mid back, bowel sounds present normoactive x4, pt skin is pale warm dry. Physician History: pt reports abd pain starting yesterday. pt reports history of colitis Timing/Duration: yesterday Activities at Onset: none Quality: cramping Abdominal Pain Onset Location: generalized abdomen Pain Radiation: back Severity of Pain-Max: moderate Severity of Pain-Current: moderate Modifying Factors: Improves With: nothing Associated Symptoms: fatigue, nausea, vomiting, weakness, No fever/chills Previous symptoms: same symptoms as today Allergies/Adverse Reactions: cephalexin monohydrate [From Keflex] Allergy (Intermediate, Verified 06/10/19 15 :15) Rash Penicillins Allergy (Intermediate, Verified 06/10/19 15:15) Rash prednisone Allergy (Intermediate, Verified 06/10/19 15:15) Rash Home Medications: Lisinopril 20 mg PO DAILY 09/12/11 [History] Multivitamin W/Iron, Minerals [Unicap Sr] 1 each PO DAILY 09/12/11 [History] Zolpidem Tartrate 10 mg [Ambien 10 MG] 10 mg PO HS 09/12/11 [History] Cyclobenzaprine HCl 10 mg [Cyclobenzaprine 10 MG] 10 mg PO TID PRN PRN [History] Buspirone HCl 15 mg PO DAILY 11/10/13 [History] Potassium Chloride [Klor-Con 8] 8 meq PO DAILY 11/12/13 [History] Citalopram Hydrobromide [Celexa] 60 mg PO DAILY 05/13/16 [History] Furosemide 20 mg [Lasix 20 mg] 60 mg PO DAILY 08/27/16 [History] Celecoxib [Celebrex] 200 mg PO BID 06/26/18 [History] Cyanocobalamin (Vitamin B-12) [B-12] 5,000 mcg PO DAILY 06/26/18 [History] Gabapentin 300 mg PO TID 06/26/18 [History] PANTOPRAZOLE 40 mg Tablet [Protonix 40MG Tablet] 40 mg PO QPM 06/26/18 [ History] Citalopram Hydrobromide [Citalopram HBr] 60 mg PO DAILY 11/13/18 [History] Hx Tetanus, Diphtheria Vaccination/Date Given: Yes Hx Influenza Vaccination/Date Given: Yes Hx Pneumococcal Vaccination/Date Given: No Immunizations Up to Date: Yes Travel Risk - International Travel Have you traveled outside of the country in past 3 weeks: No Have you or anyone close to you been diagnosed with or: No Do your reside in a community with a known COVID-19 case?: No - Coronavirus Screening Has patient experienced Coronavirus symptoms: No - Review of Systems Constitutional: No Fever, No Chills Eyes: No Symptoms Ears, Nose, & Throat: No Symptoms Respiratory: No Cough, No Dyspnea Cardiac: No Chest Pain, No Edema, No Syncope Abdominal/Gastrointestinal: Abdominal Pain, Nausea, Vomiting, Appetite Changes, No Diarrhea Genitourinary Symptoms: No Dysuria Musculoskeletal: No Back Pain, No Neck Pain Skin: No Rash Neurological: No Dizziness, No Focal Weakness, No Sensory Changes Psychological: No Symptoms Endocrine: No Symptoms All Other Systems: Reviewed and Negative - Past Medical History Pertinent Past Medical History: Yes Neurological History: No Pertinent History ENT History: No Pertinent History Cardiac History: Hypertension Respiratory History: No Pertinent History Endocrine Medical History: No Pertinent History Musculoskeletal History: Arthritis GI Medical History: Colitis, Diverticulitis, GERD, Gallbladder Disease, Other History: No Pertinent History Psycho-Social History: Anxiety, Depression, Panic Disorder Female Reproductive Disorders: Pelvic Inflammatory Disease Other Medical History: anemia - Past Surgical History Past Surgical History: Yes Neuro Surgical History: No Pertinent History Cardiac: No Pertinent History Respiratory: No Pertinent History Gastrointestinal: Cholecystectomy Genitourinary: No Pertinent History Musculoskeletal: Other Female Surgical History: Section, Tubal Ligation, Other Other Surgical History: back surgery disc pain,nerve removed, nodule taken off stomach, x 2, ablation uterine - Social History Smoking Status: Never smoker Exposure to second hand smoke: No Drug Use: none Patient Lives Alone: No Significant Family History: no pertinent family hx - Female History Hx Last Menstrual Period: ablation Hx Now: No - Nursing Vital Signs Nursing Vital Signs: Initial Vital Signs Pulse Rate 56 L 06/10/19 14:58 Respiratory Rate 16 06/10/19 14:58 Blood Pressure 174/77 06/10/19 14:58 O2 Sat by Pulse Oximetry 100 06/10/19 14:58 Pain Scale Pain Intensity 9 - Physical Exam General Appearance: no apparent distress, alert Eye Exam: PERRL/EOMI, eyes nml inspection Ears, Nose, Throat Exam: normal ENT inspection, pharynx normal, moist mucous membranes Neck Exam: normal inspection, non-tender, supple, full range of motion Respiratory Exam: normal breath sounds, lungs clear, No respiratory distress Cardiovascular Exam: regular rate/rhythm, normal heart sounds Gastrointestinal/Abdomen Exam: soft, No tenderness, No mass Pelvic Exam: not done Rectal Exam: deferred Back Exam: normal inspection, normal range of motion, No CVA tenderness, No vertebral tenderness Extremity Exam: normal inspection, normal range of motion, pelvis stable Neurologic Exam: alert, oriented x 3, cooperative, normal mood/affect, nml cerebellar function, sensation nml, No motor deficits Skin Exam: normal color, warm, dry SpO2: 100 - Course Nursing assessment & vital signs reviewed: Yes - CT Exams Abdomen/Pelvis CT Interpretation: Tele-radiologist Report (mild pancreatitis) Ordered Tests: Active Orders 24 hr Category Date Time Status IV Insertion STAT Care 06/10/19 15:13 Active ABDOMEN AND PELVIS W/0 CONTRAS [CT] Stat Exams 06/10/19 15:19 Ordered AMYLASE Stat Lab 06/10/19 15:10 Completed CBC W DIFF Stat Lab 06/10/19 15:10 Completed CMP Stat Lab 06/10/19 15:10 Completed LIPASE Stat Lab 06/10/19 15:10 Completed UA W/RFX UR CULTURE Stat Lab 06/10/19 15:10 Completed Medication Summary Generic Name Dose Route Start Last Admin Trade Name Freq PRN Reason Stop Dose Admin Sodium Chloride 1,000 mls @ 999 mls/hr 06/10/19 15:18 06/10/19 15:25 Sodium Chloride 0.9% 1000 Ml IV 06/10/19 16:18 999 mls/hr .Q1H1M STA Administration Discontinued Medications Generic Name Dose Route Start Last Admin Trade Name Freq PRN Reason Stop Dose Admin Al Hydrox/Mg Hydrox/Simethicone Confirm 06/10/19 15:44 Maalox Es 30 Ml Unit Dose Administered 06/10/19 15:45 Dose 30 ml .ROUTE .STK-MED ONE Sodium Chloride Confirm 06/10/19 15:23 Sodium Chloride 0.9% 1000 Ml Administered 06/10/19 15:24 Dose 1,000 mls @ ud .ROUTE .STK-MED ONE Lidocaine HCl Confirm 06/10/19 15:44 Xylocaine Hcl Viscous * Administered 06/10/19 15:45 Dose 15 ml .ROUTE .STK-MED ONE Magnesium Hydroxide 45 ml 06/10/19 15:41 06/10/19 15:45 Gi Cocktail 45 Ml (Maalox/Lidocaine) PO 06/10/19 15:42 45 ml STAT ONE Administration Morphine Sulfate 4 mg 06/10/19 15:18 06/10/19 15:26 Morphine Sulfate 4 Mg Inj IV 06/10/19 15:19 4 mg STAT ONE Administration Morphine Sulfate Confirm 06/10/19 15:23 Morphine Sulfate 4 Mg Inj Administered 06/10/19 15:24 Dose 4 mg .ROUTE .STK-MED ONE Ondansetron HCl 4 mg 06/10/19 15:21 06/10/19 15:25 Zofran 4 Mg/2 Ml Vial IV 06/10/19 15:22 4 mg STAT ONE Administration Ondansetron HCl Confirm 06/10/19 15:22 Zofran 4 Mg/2 Ml Vial Administered 06/10/19 15:23 Dose 4 mg .ROUTE .STK-MED ONE Lab/Rad Data: Laboratory Result Diagrams 06/10/19 15:10 06/10/19 15:10 Laboratory Results 06/10/19 06/10/19 06/10/19 Range/Units 15:10 15:10 15:10 WBC 12.1 H (4.0-10.5) K/mm3 RBC 3.97 L (4.1-5.4) M/mm3 Hgb 12.1 (12.0-16.0) gm/dl Hct 37.7 (35-47) % MCV 95.0 (78-100) fl MCH 30.5 (26-32) pg MCHC 32.1 (32-36) g/dl RDW 13.4 (11.5-14.0) % Plt Count 311 (150-450) K/mm3 MPV 9.0 (7.5-11.0) fl Gran % 80.5 H (36.0-66.0) % Eos # (Auto) 0.10 (0-0.5) Absolute Lymphs (auto) 1.51 (1.0-4.6) Absolute Monos (auto) 0.72 (0.0-1.3) Lymphocytes % 12.5 L (24.0-44.0) % Monocytes % 6.0 (0.0-12.0) % Eosinophils % 0.8 (0.00-5.0) % Basophils % 0.2 (0.0-0.4) % Absolute Granulocytes 9.70 H (1.4-6.9) Basophils # 0.02 (0-0.4) Sodium 141 (137-145) mmol/L Potassium 3.7 (3.5-5.1) mmol/L Chloride 105 (98-107) mmol/L Carbon Dioxide 30 (22-30) mmol/L Anion Gap 9.6 (5-15) MEQ/L BUN 10 (7-17) mg/dL Creatinine 0.53 (0.52-1.04) mg/dL Estimated GFR > 60.0 ML/MIN Glucose 103 (74-106) mg/dL Calcium 9.0 (8.4-10.2) mg/dL Total Bilirubin 0.50 (0.2-1.3) mg/dL AST 18 (14-36) U/L ALT 16 (0-35) U/L Alkaline Phosphatase 66 (38-126) U/L Serum Total Protein 7.5 (6.3-8.2) g/dL Albumin 4.3 (3.5-5.0) g/dL Amylase 521 H (30-110) U/L Lipase 3983 H (23-300) U/L Urine Color YELLOW (YELLOW) Urine Appearance CLEAR (CLEAR) Urine pH 7.0 (5-6) Ur Specific [place] 1.012 (1.005-1.025) Urine Protein NEGATIVE (Negative) Urine Ketones NEGATIVE (NEGATIVE) Urine Blood NEGATIVE (0-5) Julian/ul Urine Nitrite NEGATIVE (NEGATIVE) Urine Bilirubin NEGATIVE (NEGATIVE) Urine Urobilinogen NEGATIVE (0-1) mg/dL Ur Leukocyte Esterase NEGATIVE (NEGATIVE) Urine WBC (Auto) NONE (0-5) /HPF Urine RBC (Auto) NONE (0-2) /HPF U Epithel Cells (Auto) RARE (FEW) /HPF Urine Bacteria (Auto) NONE (NEGATIVE) /HPF Urine Mucus (Auto) SLIGHT (NEGATIVE) /HPF Urine Culture Reflexed NO (NO) Urine Glucose NEGATIVE (NEGATIVE) mg/dL - Progress Progress: unchanged, pain not gone completely Discussed with : Porfirio Will see patient in: hospital (observation) Counseled pt/family regarding: lab results, diagnosis, need for follow-up, rad results - Departure Departure Disposition: Observation Clinical Impression: Acute pancreatitis Qualifiers: Pancreatitis type: unspecified pancreatitis type Acute pancreatitis complication: no infection or necrosis Qualified Code(s): K85.90 - Acute pancreatitis without necrosis or infection, unspecified Condition: Fair Critical Care Time: Yes Critical Care Time(excluding separately billable procedures): Critical 30-74 mins Referrals: CECIL MARKS [Primary Care Provider] -
[2019-06-10] MEDS ORDERED: MORPHINE SULFATE 4 MG INJ ONE (15:23)
[2019-06-10] MEDS ORDERED: Sodium Chloride 0.9% 1000 ML 1,000 ML ONE (15:23)
[2019-06-10 15:34] LABS: BASOPHIL % 0.2 % (0.0-0.4); Basophil (Absolute #) 0.02 (0-0.4); Eosinophil % 0.8 % (0.00-5.0); Hematocrit 37.7 % (35-47); Hemoglobin 12.1 gm/dl (12.0-16.0); Lymphocyte (Absolute #) 1.51 (1.0-4.6); Lymphocytes % 12.5 % (24.0-44.0); Mean Corpuscular Hemoglobin 30.5 pg (26-32); Mean Corpuscular Hgb Concent. 32.1 g/dl (32-36); Monocyte (Absolute #) 0.72 (0.0-1.3); Neutrophil % 80.5 % (36.0-66.0); Platelet Count 311 K/mm3 (150-450); Red Blood Count 3.97 M/mm3 (4.1-5.4); Red Cell Distribution Width 13.4 % (11.5-14.0); White Blood Count 12.1 K/mm3 (4.0-10.5)
[2019-06-10 15:38] LABS: ALBUMIN 4.3 g/dL (3.5-5.0); ALKALINE PHOSPHATASE 66 U/L (38-126); AMYLASE 521 U/L (30-110); ANION GAP 9.6 MEQ/L (5-15); Appearance CLEAR (CLEAR); BLOOD UREA NITROGEN 10 mg/dL (7-17); Bilirubin NEGATIVE (NEGATIVE); Blood NEGATIVE Ery/ul (0-5); CHLORIDE 105 mmol/L (98-107); Carbon Dioxide 30 mmol/L (22-30); Creatinine 1 0.53 mg/dL (0.52-1.04); Epithelial Cells RARE /HPF (FEW); Glucose 103 mg/dL (74-106); Glucose NEGATIVE (NEGATIVE); Ketones NEGATIVE (NEGATIVE); Leukocyte Esterase NEGATIVE (NEGATIVE); Mucus SLIGHT /HPF (NEGATIVE); Nitrite NEGATIVE (NEGATIVE); Potassium 3.7 mmol/L (3.5-5.1); Protein,Urine Dip NEGATIVE (Negative); SGOT/AST 18 U/L (14-36); SGPT/ALT 16 U/L (0-35); SODIUM 141 mmol/L (137-145); Specific Gravity 1.012 (1.005-1.025); Total Protein 7.5 g/dL (6.3-8.2); Urobilinogen NEGATIVE mg/dL (0-1)
[2019-06-10] MEDS ORDERED: GI COCKTAIL 45 ML (Maalox/Lidocaine) PO ONE (15:41)
[2019-06-10] MEDS ORDERED: MAALOX ES 30 ML UNIT DOSE ONE (15:44)
[2019-06-10] MEDS ORDERED: XYLOCAINE HCl Viscous ONE (15:44)
[2019-06-10 15:45] LABS: LIPASE 3983 U/L (23-300)
[2019-06-10] MEDS ORDERED: Zofran 4 MG/2 ML VIAL IV PRN (16:22)
[2019-06-10] MEDS ORDERED: DILAUDID 2 MG INJECTION IV PRN ×3 (16:22→20:40)
[2019-06-10] MEDS: PROTONIX 40 MG IV IV SCH ×2 (16:39→16:42)
[2019-06-10] MEDS: Sodium Chloride 0.9% 1000 ML 1,000 ML IV SCH (16:40)
[2019-06-10] MEDS ORDERED: ENOXAPARIN SODIUM SQ ONE (17:13)
[2019-06-10] MEDS ORDERED: DILAUDID 2 MG INJECTION IV STA (17:21)
[2019-06-10] MEDS: ENOXAPARIN SODIUM SQ SCH (17:32)
[2019-06-10] MEDS ORDERED: Cyclobenzaprine 10 MG PO PRN (17:34)
[2019-06-10] MEDS ORDERED: BENTYL 20 MG PO PRN (17:45)
--- NOTE | 2019-06-10 19:56 | XRAY ---
Indication: Abdomen pain. Multiple contiguous axial images obtained through the abdomen and pelvis without contrast as ordered. Comparison: June 26, 2018. Lung bases are clear. Heart is not enlarged. Noncontrasted stomach and bowel loops appear nonobstructed. Appendix not seen. There is now mild fecal debris predominantly in the ascending and transverse colon. Minimal descending and sigmoid diverticulosis, 13.3 cm splenomegaly, nonobstructing bilateral renal punctate calculus, and cholecystectomy. Tail of the pancreas now demonstrates subtle haziness, possible mild/early pancreatitis. Also new tiny fluid in the left colic gutter. No walled off fluid collection or free air. Remaining liver, pancreas, spleen, adrenal glands, kidneys, ureters, bladder, uterus, and aorta appear unremarkable for noncontrast exam. Osseous structures intact with stable lower lumbar degenerative changes. Impression: 1. New subtle pancreatic tail haziness. Rule out mild/early pancreatitis. 2. Mild right hemicolon fecal stasis. 3. Stable nonobstructing bilateral renal micro-calculus, minimal colonic diverticulosis, and splenomegaly. Comment: Preliminary interpretation was made by [facility]. No critical discrepancy.
[2019-06-10] MEDS: DILAUDID 2 MG INJECTION IV PRN (20:49)
[2019-06-10] MEDS: NEURONTIN 300 MG PO SCH (21:12)
[2019-06-10] MEDS: Ambien 10 MG PO SCH (21:13)
[2019-06-10] MEDS ORDERED: celeBREX 100 MG PO SCH (22:00)
[2019-06-11] MEDS: DILAUDID 2 MG INJECTION IV PRN ×4 (00:51→21:10)
[2019-06-11] MEDS: Sodium Chloride 0.9% 1000 ML 1,000 ML IV SCH (03:28)
[2019-06-11 05:01] LABS: BASOPHIL % 0.2 % (0.0-0.4); Basophil (Absolute #) 0.02 (0-0.4); Eosinophil % 0.5 % (0.00-5.0); Eosinophil (Absolute #) 0.05 (0-0.5); Hematocrit 34.5 % (35-47); Hemoglobin 10.9 gm/dl (12.0-16.0); Lymphocyte (Absolute #) 1.27 (1.0-4.6); Lymphocytes % 11.7 % (24.0-44.0); Mean Cell Volume 96.6 fl (78-100); Mean Corpuscular Hemoglobin 30.5 pg (26-32); Mean Corpuscular Hgb Concent. 31.6 g/dl (32-36); Mean Platelet Volume 9.1 fl (7.5-11.0); Monocyte (Absolute #) 0.71 (0.0-1.3); Monocytes % 6.5 % (0.0-12.0); Neutrophil % 81.1 % (36.0-66.0); Platelet Count 265 K/mm3 (150-450); Red Blood Count 3.57 M/mm3 (4.1-5.4); Red Cell Distribution Width 13.8 % (11.5-14.0); White Blood Count 10.9 K/mm3 (4.0-10.5)
[2019-06-11 05:09] LABS: AMYLASE 313 U/L (30-110); ANION GAP 6.1 MEQ/L (5-15); BLOOD UREA NITROGEN 9 mg/dL (7-17); CHLORIDE 107 mmol/L (98-107); Calcium 8.3 mg/dL (8.4-10.2); Carbon Dioxide 32 mmol/L (22-30); Creatinine 1 0.51 mg/dL (0.52-1.04); Glucose 109 mg/dL (74-106); LIPASE 1392 U/L (23-300); Potassium 3.9 mmol/L (3.5-5.1); SODIUM 141 mmol/L (137-145)
[2019-06-11] MEDS ORDERED: CYANOCOBALAMIN 2500 MCG PO SCH (07:15)
--- NOTE | 2019-06-11 09:01 | HP ---
CHIEF COMPLAINT: Abdominal pain. HISTORY OF PRESENT ILLNESS: The patient is a 48 year-old white female who reports that she began having problems with epigastric pain. She had reflux of bile that had burnt her throat prior to admission to the hospital. She denied any diarrhea. There had been no fever, chills or sweats. The patient reports a history of having had gallbladder removed in 1997. PAST MEDICAL HISTORY: Significant for morbid obesity. She has anxiety and depression. She has neuropathy and gastroesophageal reflux disease. Her history otherwise included hypertension, pelvic inflammatory disease and anemia. PAST SURGICAL HISTORY: Includes cholecystectomy, sections, tubal ligation, back surgery, nodule taken off of her stomach. HOME MEDICATIONS: Her home medication list includes: Buspar 15 mg a day, Celebrex 200 mg b.i.d., citalopram 60 mg a day, Flexeril 10 mg t.i.d., Bentyl 20 mg b.i.d., Lasix 60 mg a day, gabapentin 300 mg t.i.d., lisinopril 20 mg a day, multivitamins, Protonix 40 mg a day, potassium 8 mEq a day, Ambien 10 mg at night. ALLERGIES: KEFLEX. PENICILLIN. PREDNISONE. PHYSICAL EXAMINATION: The patient's vital signs on admission showed pulse 56, respiratory rate 16 and blood pressure 174/77. HEENT: Normocephalic, atraumatic. Pupils equal round reactive to light. Extraocular movements intact. Oropharynx is somewhat dry. NECK: Supple without lymphadenopathy, thyromegaly or JVD. CHEST: Clear to auscultation. HEART: Regular rate and rhythm. ABDOMEN: Tender. No palpable masses. EXTREMITIES: Without cyanosis, clubbing or edema. NEUROLOGIC: The patient is alert and oriented x3. LAB DATA AND TESTS: On admission revealed her white count to be 12,100. Her hemoglobin 12.1, PLT 211,000. Metabolic panel was entirely normal. Amylase 521, lipase 3,983. UA was normal. CT scan abdomen and pelvis showed some haziness over the tail of the pancreas otherwise no acute findings were noted. There were noted to be a few scattered sigmoid diverticula. ASSESSMENT: A patient with pancreatitis. She has been admitted to the hospital on gut rest. She was allowed to have some clear liquids. She will be given pain control, IV fluids and monitoring of her amylase and lipase. Otherwise the patient received IV Protonix and hold her Celebrex. Her home medication list includes: Buspar 15 mg a day, Celebrex 200 mg b.i.d., citalopram 60 mg a day, Flexeril 10 mg t.i.d., Bentyl 20 mg b.i.d., Lasix 60 mg a day, gabapentin 300 mg t.i.d., lisinopril 20 mg a day, multivitamins, Protonix 40 mg a day, potassium 8 mEq a day, Ambien 10 mg at night.
[2019-06-11] MEDS: BUSPAR 5 MG PO SCH (09:46)
[2019-06-11] MEDS: D5W/0.45NS W/ 20mEq KCl 1000 ML 1,000 ML IV SCH ×2 (09:46→20:08)
[2019-06-11] MEDS: Klor Con 10 MEQ PO SCH (09:47)
[2019-06-11] MEDS: LASIX 20 MG PO SCH (09:47)
[2019-06-11] MEDS: ceLEXa 20 MG PO SCH (09:47)
[2019-06-11] MEDS: Vitamin B-12 500 MCG PO SCH (09:48)
[2019-06-11] MEDS: Zestril 20 MG PO SCH (09:48)
[2019-06-11] MEDS: NEURONTIN 300 MG PO SCH ×3 (09:48→21:12)
[2019-06-11] MEDS: ENOXAPARIN SODIUM SQ SCH (09:49)
[2019-06-11] MEDS: PROTONIX 40 MG IV IV SCH (09:49)
[2019-06-11] MEDS ORDERED: BUSPIRONE HCL 15 MG PO SCH (10:00)
[2019-06-11] MEDS ORDERED: IRON MINERALS PO SCH (10:00)
[2019-06-11] MEDS ORDERED: MULTIVITAMIN PO SCH (10:00)
[2019-06-11] MEDS ORDERED: THERAGRAN MULTIVITAMIN PO SCH (10:00)
[2019-06-11] MEDS ORDERED: NON-FORMULARY ITEM (Potassium Chloride [Klor-Con 8] 8 MEQ) PO SCH (10:00)
[2019-06-11] MEDS: TYLENOL 325 MG PO PRN ×2 (10:05→18:41)
[2019-06-11] MEDS: Ambien 10 MG PO SCH (21:12)
[2019-06-12 05:13] LABS: Hematocrit 33.9 % (35-47); Mean Cell Volume 95.5 fl (78-100); Mean Corpuscular Hgb Concent. 32.4 g/dl (32-36); Mean Platelet Volume 9.2 fl (7.5-11.0); Platelet Count 274 K/mm3 (150-450); Red Blood Count 3.55 M/mm3 (4.1-5.4); Red Cell Distribution Width 13.7 % (11.5-14.0); White Blood Count 13.5 K/mm3 (4.0-10.5)
[2019-06-12 05:35] LABS: ALBUMIN 3.8 g/dL (3.5-5.0); ALKALINE PHOSPHATASE 67 U/L (38-126); AMYLASE 73 U/L (30-110); ANION GAP 9.6 MEQ/L (5-15); BLOOD UREA NITROGEN 6 mg/dL (7-17); CHLORIDE 102 mmol/L (98-107); Calcium 8.7 mg/dL (8.4-10.2); Carbon Dioxide 30 mmol/L (22-30); Creatinine 1 0.47 mg/dL (0.52-1.04); Glucose 108 mg/dL (74-106); LIPASE 108 U/L (23-300); Potassium 3.6 mmol/L (3.5-5.1); SGOT/AST 19 U/L (14-36); SGPT/ALT 20 U/L (0-35); SODIUM 138 mmol/L (137-145); Total Protein 6.9 g/dL (6.3-8.2)
[2019-06-12] MEDS: D5W/0.45NS W/ 20mEq KCl 1000 ML 1,000 ML IV SCH ×2 (06:08→17:03)
[2019-06-12] MEDS: DILAUDID 2 MG INJECTION IV PRN (07:35)
[2019-06-12] MEDS ORDERED: OXYCODONE-ACETAMINOPHEN 10-325 PO PRN (09:17)
[2019-06-12] MEDS: ENOXAPARIN SODIUM SQ SCH (10:11)
[2019-06-12] MEDS: LASIX 20 MG PO SCH (10:11)
[2019-06-12] MEDS: ceLEXa 20 MG PO SCH (10:12)
[2019-06-12] MEDS: BUSPAR 5 MG PO SCH (10:12)
[2019-06-12] MEDS: NEURONTIN 300 MG PO SCH ×3 (10:12→21:47)
[2019-06-12] MEDS: Klor Con 10 MEQ PO SCH (10:14)
[2019-06-12] MEDS: PROTONIX 40 MG IV IV SCH (10:14)
[2019-06-12] MEDS: Zestril 20 MG PO SCH (10:14)
[2019-06-12] MEDS: Ambien 10 MG PO SCH (21:47)
[2019-06-12] MEDS ORDERED: BENADRYL 25 MG CAPSULE PO PRN (23:48)
[2019-06-13 05:22] LABS: Absolute Neutrophil Ct (ANC) 5.43 (1.4-6.9); BASOPHIL % 0.5 % (0.0-0.4); Basophil (Absolute #) 0.04 (0-0.4); Eosinophil % 3.7 % (0.00-5.0); Eosinophil (Absolute #) 0.31 (0-0.5); Hematocrit 33.2 % (35-47); Hemoglobin 10.5 gm/dl (12.0-16.0); Lymphocyte (Absolute #) 1.87 (1.0-4.6); Lymphocytes % 22.3 % (24.0-44.0); Mean Cell Volume 95.1 fl (78-100); Mean Corpuscular Hemoglobin 30.1 pg (26-32); Mean Corpuscular Hgb Concent. 31.6 g/dl (32-36); Monocyte (Absolute #) 0.72 (0.0-1.3); Monocytes % 8.6 % (0.0-12.0); Neutrophil % 64.9 % (36.0-66.0); Platelet Count 251 K/mm3 (150-450); Red Blood Count 3.49 M/mm3 (4.1-5.4); Red Cell Distribution Width 13.8 % (11.5-14.0); White Blood Count 8.4 K/mm3 (4.0-10.5)
[2019-06-13 05:45] LABS: ALBUMIN 3.4 g/dL (3.5-5.0); ALKALINE PHOSPHATASE 60 U/L (38-126); AMYLASE 49 U/L (30-110); ANION GAP 8.7 MEQ/L (5-15); BLOOD UREA NITROGEN 8 mg/dL (7-17); CHLORIDE 106 mmol/L (98-107); Calcium 8.7 mg/dL (8.4-10.2); Carbon Dioxide 29 mmol/L (22-30); Creatinine 1 0.51 mg/dL (0.52-1.04); Glucose 95 mg/dL (74-106); LIPASE 57 U/L (23-300); Potassium 3.8 mmol/L (3.5-5.1); SGOT/AST 17 U/L (14-36); SGPT/ALT 17 U/L (0-35); SODIUM 140 mmol/L (137-145); Total Protein 6.5 g/dL (6.3-8.2)
[2019-06-13] MEDS ORDERED: BENADRYL 25 MG CAPSULE PO PRN (07:10)
[2019-06-13] MEDS: ceLEXa 20 MG PO SCH (10:06)
[2019-06-13] MEDS: BUSPAR 5 MG PO SCH (10:06)
[2019-06-13] MEDS: ENOXAPARIN SODIUM SQ SCH (10:06)
[2019-06-13] MEDS: Vitamin B-12 500 MCG PO SCH (10:06)
[2019-06-13] MEDS: Klor Con 10 MEQ PO SCH (10:07)
[2019-06-13] MEDS: LASIX 20 MG PO SCH (10:07)
[2019-06-13] MEDS: NEURONTIN 300 MG PO SCH (10:07)
[2019-06-13] MEDS: Zestril 20 MG PO SCH (10:07)
--- NOTE | 2019-06-13 10:46 | DS ---
DISCHARGE DIAGNOSIS: PANCREATITIS. HOSPITAL COURSE: The patient is a 48 year-old white female who developed abdominal pain, presented herself to the emergency room and was found on CT scan to have a haziness over the tail of the pancreas. Her amylase and lipase were significantly elevated. The patient was admitted for IV pain control, gut rest, IV fluids and IV Protonix. The patient did improve over the next couple of days to the point where her amylase and lipase resolved to normal by 06/13/2019. She was instructed on a low fat diet otherwise and was felt to be ready for discharge home. She was discharged home with instructions to continue her low fat diet. If she should start having abdominal pain she is to gut rest with taking clear liquids only unless the pain becomes severe enough that she feels like she needs to come back in again. The patient due to COVID-19 will be seen in our office on an as needed basis or follow up in one month but again she was instructed to call us if she has any problems in the interim.
[2019-06-13 14:27] VITALS: BP 173/82; PULSE 59; O2SAT 98
== END 2019-06-13 12:00 | disposition home or self-care (01) | DRG 440 ==
LOC: ED 14:52 → MED SURG 16:15 → OBSVTOIN 06-11 08:39
PROVIDERS: ADMIT Family Medicine; ATTEND Family Medicine
DX: K85.90 Acute pancreatitis without necrosis or infection, unspecified (principal); I10 Essential (primary) hypertension; G62.9 Polyneuropathy, unspecified; F41.8 Other specified anxiety disorders; Z79.899 Other long term (current) drug therapy
CPT/HCPCS: 36000; 36415; 74176; 80048; 80053; 81001; 82150; 83690; 85025; 85027; 96374; 96375; 99285; 99291; G0378; J1170; J1650; J2270; J2405; A9270-GY

== ENCOUNTER 2019-12-14 20:23 | Emergency (ER) | payer BC ==
[2019-12-14 20:55] VITALS: O2SAT 96
[2019-12-14 21:18] LABS: Absolute Neutrophil Ct (ANC) 11.57 (1.4-6.9); BASOPHIL % 0.1 % (0.0-0.4); Basophil (Absolute #) 0.01 (0-0.4); Eosinophil (Absolute #) 0 (0-0.5); Hematocrit 39.7 % (35-47); Hemoglobin 12.7 gm/dl (12.0-16.0); Lymphocyte (Absolute #) 0.68 (1.0-4.6); Lymphocytes % 5.5 % (24.0-44.0); Mean Cell Volume 93.9 fl (78-100); Monocytes % 0.8 % (0.0-12.0); Neutrophil % 93.6 % (36.0-66.0); Platelet Count 258 K/mm3 (150-450); Red Blood Count 4.23 M/mm3 (4.1-5.4); Red Cell Distribution Width 13.7 % (11.5-14.0); White Blood Count 12.4 K/mm3 (4.0-10.5)
[2019-12-14 21:29] LABS: ANION GAP 9.6 MEQ/L (5-15); BLOOD UREA NITROGEN 13 mg/dL (7-17); CHLORIDE 105 mmol/L (98-107); Calcium 9.4 mg/dL (8.4-10.2); Carbon Dioxide 27 mmol/L (22-30); Creatinine 1 0.55 mg/dL (0.52-1.04); EST GLOMERULAR FILTRATION RATE > 60.0 ML/MIN; Glucose 159 mg/dL (74-106); Potassium 3.7 mmol/L (3.5-5.1); SODIUM 138 mmol/L (137-145)
--- NOTE | 2019-12-14 21:35 | XRAY ---
Indication: Bilateral upper extremity numbness. Multiple contiguous axial images obtained through the head without contrast. Comparison: August 27, 2016. Normal appearing brain parenchyma, ventricles, and bony calvarium. Minimal mucosal thickening of both ethmoid sinuses. Remaining paranasal sinuses and mastoid air cells are clear. Impression: Minimal paranasal sinus disease. Remaining CT head without contrast exam is again normal.
--- NOTE | 2019-12-14 21:56 | ERPHSYRPT ---
- History of Present Illness Time Seen by Provider: 12/14/19 20:35 Source: patient Exam Limitations: no limitations Patient Subjective Stated Complaint: pt states she had bilat knees injections and her lt shoulder injection today around 1100. around 1800 she began having n umbness and tingling in bilat hands and arms. states she has heaviness in both arms. Triage Nursing Assessment: pt alert and oriented, answers questions approp. pt tearful and upset. pt ambulatory with steady gait noted. respirations nonlabored with lungs cta. pupils equal and reactive. bilat paunch trimmer equal and wnl. no facial droop noted. Physician History: This patient is a 49-year-old morbidly obese white female who has a history anxiety, depression and panic disorder as well as hypertension and arthritis. Today, at 11 AM, patient underwent injection of steroid into her left shoulder and bilateral lower extremities. As the day went on she was having concerns because she was having numbness and heaviness and the bilateral upper extremitie s. She was not having specific chest pain or shortness of breath but the sensations were getting worse in both her upper extremities. Patient is concerned about a stroke and possible cardiac issue so she came into the emergency department for evaluation. Timing/Duration: today Severity: moderate Associated Symptoms: denies symptoms, No nausea, No vomiting, No shortness of breath, No diaphoresis, No rash, No syncope, No seizure, No weakness Allergies/Adverse Reactions: cephalexin monohydrate [From Keflex] Allergy (Intermediate, Verified 12/14/19 20:57) Rash Penicillins Allergy (Intermediate, Verified 12/14/19 20:57) Rash prednisone Allergy (Intermediate, Verified 12/14/19 20:57) Rash pt reports feeling hot and flushed with prednisone Home Medications: Lisinopril 20 mg PO DAILY 09/12/11 [History] Multivitamin W/Iron, Minerals [Unicap Sr] 1 each PO DAILY 09/12/11 [History] Zolpidem Tartrate 10 mg [Ambien 10 MG] 10 mg PO HS 09/12/11 [History] Cyclobenzaprine HCl 10 mg [Cyclobenzaprine 10 MG] 10 mg PO TID PRN PRN 11/03/12 [History] Buspirone HCl 15 mg PO DAILY 11/10/13 [History] Potassium Chloride [Klor-Con 8] 8 meq PO DAILY 11/12/13 [History] Citalopram Hydrobromide [Celexa] 60 mg PO DAILY 05/13/16 [History] Furosemide 20 mg [Lasix 20 mg] 60 mg PO DAILY 08/27/16 [History] Celecoxib [Celebrex] 200 mg PO BID 06/26/18 [History] Cyanocobalamin (Vitamin B-12) [B-12] 2,500 mcg PO 3XW 06/26/18 [History] Gabapentin 300 mg PO TID 06/26/18 [History] PANTOPRAZOLE 40 mg Tablet [Protonix 40MG Tablet] 40 mg PO DAILY 06/26/18 [History] Dicyclomine HCl 20 mg [Bentyl 20 mg] 10 mg PO BID PRN PRN 06/10/19 [History] Hx Tetanus, Diphtheria Vaccination/Date Given: No Hx Influenza Vaccination/Date Given: No Hx Pneumococcal Vaccination/Date Given: No Immunizations Up to Date: No Travel Risk - International Travel Have you traveled outside of the country in past 3 weeks: No - Coronavirus Screening Are you exhibiting any of the following symptoms?: No Close contact with a COVID-19 positive Pt in past 14-21 Days: No - Review of Systems Constitutional: No Symptoms Eyes: No Symptoms Ears, Nose, & Throat: No Symptoms Respiratory: No Symptoms Cardiac: No Symptoms Abdominal/Gastrointestinal: No Symptoms Genitourinary Symptoms: No Symptoms Musculoskeletal: No Symptoms Skin: No Symptoms Neurological: No Symptoms Psychological: Anxiety Endocrine: No Symptoms Hematologic/Lymphatic: No Symptoms Immunological/Allergic: No Symptoms All Other Systems: Reviewed and Negative - Past Medical History Pertinent Past Medical History: Yes Neurological History: No Pertinent History ENT History: No Pertinent History Cardiac History: Deep Vein Thrombosis, Hypertension Respiratory History: No Pertinent History Endocrine Medical History: No Pertinent History Musculoskeletal History: Arthritis GI Medical History: Colitis, Diverticulitis, GERD, Gallbladder Disease, Other History: No Pertinent History Psycho-Social History: Anxiety, Depression, Panic Disorder Female Reproductive Disorders: Pelvic Inflammatory Disease Other Medical History: anemia - Past Surgical History Past Surgical History: Yes Neuro Surgical History: No Pertinent History Cardiac: No Pertinent History Respiratory: No Pertinent History Gastrointestinal: Cholecystectomy Genitourinary: No Pertinent History Musculoskeletal: Other Female Surgical History: Section, Tubal Ligation, Other Other Surgical History: back surgery disc pain,nerve removed, nodule taken off stomach, x 2, ablation uterine - Social History Smoking Status: Never smoker Exposure to second hand smoke: No Drug Use: none Patient Lives Alone: No Significant Family History: no pertinent family hx - Female History Hx Last Menstrual Period: ablation Hx Now: No - Nursing Vital Signs Nursing Vital Signs: Initial Vital Signs Temperature 98.5 F 12/14/19 20:35 Pulse Rate 71 12/14/19 20:35 Respiratory Rate 22 12/14/19 20:35 Blood Pressure 170/81 12/14/19 20:35 O2 Sat by Pulse Oximetry 96 12/14/19 20:35 Pain Scale Pain Intensity 7 - Physical Exam General Appearance: no apparent distress, alert, anxiety, obese Eye Exam: PERRL/EOMI, eyes nml inspection Ears, Nose, Throat Exam: normal ENT inspection, moist mucous membranes Neck Exam: normal inspection, non-tender, supple, full range of motion Respiratory Exam: normal breath sounds, lungs clear, airway intact, No chest tenderness, No respiratory distress Cardiovascular Exam: regular rate/rhythm, normal heart sounds, normal peripheral pulses Pelvic Exam: not done Rectal Exam: not done Back Exam: normal inspection, normal range of motion, No CVA tenderness, No vertebral tenderness Extremity Exam: normal inspection, normal range of motion, pelvis stable Neurologic Exam: alert, oriented x 3, cooperative, powerbuilder II-XII nml as tested, normal mood/affect, nml cerebellar function, nml station & gait, sensation nml Skin Exam: normal color, warm, dry Lymphatic Exam: No adenopathy SpO2 Interpretation: normal SpO2: 96 O2 Delivery: Room Air - Course Nursing assessment & vital signs reviewed: Yes EKG Interpreted by Me: RATE (55), Sinus Rhythm, NORMAL AXIS, NORMAL INTERVALS, NORMAL QRS, Non-specific ST Changes, Other (The patient's comparison EKG was on 11/13/2018. Patient has persistent probable left ventricular hypertrophy and persistent nonspecific T abnormalities. There are no acute ischemic changes on this current EKG) Ordered Tests: Active Orders 24 hr Category Date Time Status EKG-ER Only STAT Care 12/14/19 20:50 Active HEAD WITHOUT CONTRAST [CT] Stat Exams 12/14/19 20:49 Completed BMP Stat Lab 12/14/19 21:05 Completed CBC W DIFF Stat Lab 12/14/19 21:05 Completed MAGNESIUM Stat Lab 12/14/19 21:05 Completed TROPONIN Q3H Lab 12/14/19 21:05 Completed TROPONIN Q3H Lab 12/15/19 00:00 Ordered TROPONIN Q3H Lab 12/15/19 03:00 Ordered TROPONIN Q3H Lab 12/15/19 06:00 Ordered TROPONIN Q3H Lab 12/15/19 09:00 Ordered Lab/Rad Data: Laboratory Result Diagrams 12/14/19 21:05 12/14/19 21:05 Laboratory Results 12/14/19 12/14/19 12/14/19 Range/Units 21:05 21:05 21:05 WBC 12.4 H (4.0-10.5) K/mm3 RBC 4.23 (4.1-5.4) M/mm3 Hgb 12.7 (12.0-16.0) gm/dl Hct 39.7 (35-47) % MCV 93.9 (78-100) fl MCH 30.0 (26-32) pg MCHC 32.0 (32-36) g/dl RDW 13.7 (11.5-14.0) % Plt Count 258 (150-450) K/mm3 MPV 9.0 (7.5-11.0) fl Gran % 93.6 H (36.0-66.0) % Eos # (Auto) 0 (0-0.5) Absolute Lymphs (auto) 0.68 L (1.0-4.6) Absolute Monos (auto) 0.10 (0.0-1.3) Lymphocytes % 5.5 L (24.0-44.0) % Monocytes % 0.8 (0.0-12.0) % Eosinophils % 0.0 (0.00-5.0) % Basophils % 0.1 (0.0-0.4) % Absolute Granulocytes 11.57 H (1.4-6.9) Basophils # 0.01 (0-0.4) Sodium 138 (137-145) mmol/L Potassium 3.7 (3.5-5.1) mmol/L Chloride 105 (98-107) mmol/L Carbon Dioxide 27 (22-30) mmol/L Anion Gap 9.6 (5-15) MEQ/L BUN 13 (7-17) mg/dL Creatinine 0.55 (0.52-1.04) mg/dL Estimated GFR > 60.0 ML/MIN Glucose 159 H (74-106) mg/dL Calcium 9.4 (8.4-10.2) mg/dL Magnesium 2.0 (1.6-2.3) mg/dL Troponin I < 0.012 (0.000-0.034) ng/mL - Progress Progress: improved, re-examined Progress Note: 12/14/19 22:01 CAT scan of the head without contrast reveals no acute intracranial abnormality - Departure Departure Disposition: Home Clinical Impression: Numbness and tingling of both upper extremities, Medication reaction, Anxiety Condition: Stable Critical Care Time: No Referrals: CECIL MARKS [Primary Care Provider] - Additional Instructions: Take your medications as prescribed. Follow-up with your primary care physician for further management. Return to the emergency department if your symptoms worsen over the weekend. Forms: Work/School Release Form
[2019-12-14 22:02] VITALS: BP 141/76; PULSE 63
== END 2019-12-14 22:29 | disposition home or self-care (01) ==
LOC: ED 20:23
DX: R20.0 Anesthesia of skin (principal); T50.995A Adverse effect of other drugs, medicaments and biological substances, initial encounter; F41.3 Other mixed anxiety disorders; I10 Essential (primary) hypertension; Z79.899 Other long term (current) drug therapy; N73.9 Female pelvic inflammatory disease, unspecified
CPT/HCPCS: 20610; 36415; 70450; 80048; 83735; 84484; 85025; 93005; 99213; 99284; J1040; J3301

== ENCOUNTER 2020-03-03 22:53 | Emergency (ER) | payer BC ==
[2020-03-03 23:12] VITALS: O2SAT 99
--- NOTE | 2020-03-04 00:23 | ERPHSYRPT ---
- History of Present Illness Time Seen by Provider: 03/03/20 23:15 Source: patient Exam Limitations: no limitations Patient Subjective Stated Complaint: pt c/o constipation Triage Nursing Assessment: pt c/o constipation, hasn't had a BM since 02/27/20. Pt took a dulcolax fast acting today and a suppository without results. Abd lg, obese with active bs x4 quad, tender to mid abd region. Pt c/o flank pain as well. Pt had colonoscopy on 02/20/20 and barium enema on 02/28/20. Pt called her GI Dr., Dr. Trivedi, and he instructed her to come to the ER. Physician History: Patient is a 49-year-old female presents to our ED with complaints of constipation. Patient's last bowel movement was 12 9 approximately 5 days ago. Patient has not had a bowel movement since. No nausea or vomiting. Patient advised that she had a colonoscopy on 02 19. No significant findings were observed. Patient then had a bout of constipation and had a barium enema on 1210. Patient did have a bowel movement on 1210 however it was not her norm. Patient currently feels her abdomen is distended. Patient called her button broacher who advised her to come to our ED for evaluation. No kalin abdominal pain. Patient abdomen feels distended. No chest pain or shortness of breath. No nausea vomiting or diaphoresis. No trauma. No fever. Symptoms are mild to moderate intensity. No specific worsening or improving factors. Pat ient voices no other complaints at this time. Timing/Duration: day(s) (5 to 6 days ago.) Severity: moderate Modifying Factors: Improves With: nothing Associated Symptoms: No nausea, No vomiting, No abdominal pain, No diaphoresis, No cough, No chest pain, No fever, No headaches Allergies/Adverse Reactions: cephalexin monohydrate [From Keflex] Allergy (Intermediate, Verified 03/03/20 23:21) Rash Penicillins Allergy (Intermediate, Verified 03/03/20 23:21) Rash prednisone Allergy (Intermediate, Verified 03/03/20 23:21) Rash pt reports feeling hot and flushed with prednisone Home Medications: Lisinopril 20 mg PO DAILY 09/12/11 [History] Multivitamin W/Iron, Minerals [Unicap Sr] 1 each PO DAILY 09/12/11 [History] Zolpidem Tartrate 10 mg [Ambien 10 MG] 10 mg PO HS 09/12/11 [History] Cyclobenzaprine HCl 10 mg [Cyclobenzaprine 10 MG] 10 mg PO TID PRN PRN 11/03/12 [History] Buspirone HCl 15 mg PO DAILY 11/10/13 [History] Potassium Chloride [Klor-Con 8] 8 meq PO DAILY 11/12/13 [History] Citalopram Hydrobromide [Celexa] 60 mg PO DAILY 05/13/16 [History] Furosemide 20 mg [Lasix 20 mg] 60 mg PO DAILY 08/27/16 [History] Celecoxib [Celebrex] 200 mg PO BID 06/26/18 [History] Cyanocobalamin (Vitamin B-12) [B-12] 2,500 mcg PO DAILY 06/26/18 [History] Gabapentin 300 mg PO TID 06/26/18 [History] PANTOPRAZOLE 40 mg Tablet [Protonix 40MG Tablet] 40 mg PO DAILY 06/26/18 [History] Hydrocodone Bit/Acetaminophen [Hydrocodon-Acetaminophen 5-325] 1 tab PO Q6H PRN PRN 03/03/20 [History] Omeprazole Magnesium [Prilosec Otc] 20 mg PO DAILY PRN PRN 03/03/20 [History] Hx Tetanus, Diphtheria Vaccination/Date Given: Yes Hx Influenza Vaccination/Date Given: No Hx Pneumococcal Vaccination/Date Given: No Immunizations Up to Date: Yes Travel Risk - International Travel Have you traveled outside of the country in past 3 weeks: No - Coronavirus Screening Are you exhibiting any of the following symptoms?: No Close contact with a COVID-19 positive Pt in past 14-21 Days: No - Review of Systems Constitutional: No Symptoms, No Fever, No Chills Eyes: No Symptoms Ears, Nose, & Throat: No Symptoms Respiratory: No Symptoms, No Cough, No Dyspnea Cardiac: No Symptoms, No Chest Pain, No Edema, No Syncope Abdominal/Gastrointestinal: No Symptoms, No Abdominal Pain, No Nausea, No Vomiting, No Diarrhea Genitourinary Symptoms: No Symptoms, No Dysuria Musculoskeletal: No Symptoms, No Back Pain, No Neck Pain Skin: No Symptoms, No Rash Neurological: No Symptoms, No Dizziness, No Focal Weakness, No Sensory Changes Psychological: No Symptoms Endocrine: No Symptoms Hematologic/Lymphatic: No Symptoms Immunological/Allergic: No Symptoms All Other Systems: Reviewed and Negative - Past Medical History Pertinent Past Medical History: Yes Neurological History: No Pertinent History ENT History: No Pertinent History Cardiac History: Deep Vein Thrombosis, Hypertension Respiratory History: No Pertinent History Endocrine Medical History: No Pertinent History Musculoskeletal History: Arthritis GI Medical History: Colitis, Diverticulitis, GERD, Gallbladder Disease, Other History: No Pertinent History Psycho-Social History: Anxiety, Depression, Panic Disorder Female Reproductive Disorders: Pelvic Inflammatory Disease Other Medical History: anemia - Past Surgical History Past Surgical History: Yes Neuro Surgical History: No Pertinent History Cardiac: No Pertinent History Respiratory: No Pertinent History Gastrointestinal: Cholecystectomy Genitourinary: No Pertinent History Musculoskeletal: Other Female Surgical History: Section, Tubal Ligation, Other Other Surgical History: back surgery disc pain,nerve removed, nodule taken off stomach, x 2, ablation uterine - Social History Smoking Status: Never smoker Exposure to second hand smoke: No Drug Use: none Patient Lives Alone: No Significant Family History: no pertinent family hx - Female History Hx Now: No - Nursing Vital Signs Nursing Vital Signs: Initial Vital Signs Temperature 97.7 F 03/03/20 23:11 Pulse Rate 62 03/03/20 23:11 Respiratory Rate 22 03/03/20 23:11 Blood Pressure 149/75 03/03/20 23:11 O2 Sat by Pulse Oximetry 99 03/03/20 23:11 Pain Scale Pain Intensity 5 - Physical Exam General Appearance: no apparent distress, alert Eye Exam: PERRL/EOMI, eyes nml inspection Ears, Nose, Throat Exam: normal ENT inspection, TMs normal, pharynx normal, moist mucous membranes Neck Exam: normal inspection, non-tender, supple, full range of motion Respiratory Exam: normal breath sounds, lungs clear, No respiratory distress Cardiovascular Exam: regular rate/rhythm, normal heart sounds, normal peripheral pulses Gastrointestinal/Abdomen Exam: soft, normal bowel sounds, No tenderness, No mass Back Exam: normal inspection, normal range of motion, No CVA tenderness, No vertebral tenderness Extremity Exam: normal inspection, normal range of motion, pelvis stable Neurologic Exam: alert, oriented x 3, cooperative, normal mood/affect, nml cerebellar function, nml station & gait, sensation nml, No motor deficits Skin Exam: normal color, warm, dry, No rash Lymphatic Exam: No adenopathy SpO2 Interpretation: normal SpO2: 99 O2 Delivery: Room Air - Course Nursing assessment & vital signs reviewed: Yes - CT Exams Abdomen/Pelvis CT Interpretation: Tele-radiologist Report (Stable nonobstructive bilateral nephrolithiasis. There is a dense oral contrast in the colon and rectum with associated streak artifact which limits evaluation. This is likely residual barium from previous exam. Stable colonic diverticulosis without evidence of acute diverticulitis. There does n) Ordered Tests: Active Orders 24 hr Category Date Time Status ABDOMEN AND PELVIS W/0 CONTRAS [CT] Stat Exams 03/04/20 00:20 Taken - Progress Progress: improved Progress Note: 03/04/20 04:27 Patient reassessed. Patient feels somewhat better. CT scan reveals stable nonobstructive bilateral nephrolithiasis. There is residual oral contrast in the colon and rectum with associated streak artifact which limits evaluation from previous barium exam. Stable colonic diverticulosis without evidence of acute diverticulitis. There is not appear to be a significant stool volume of the colon and rectum and no signs of bowel obstruction. Urinary tract infection. Patient was still somewhat symptomatic. I advised admission for further evaluation and observation. Patient declined. Patient requested discharge. Patient agrees to follow-up with primary care doctor within 48 hours for reevaluation. 03/04/20 04:30 Counseled pt/family regarding: lab results, diagnosis, need for follow-up, rad results - Departure Departure Disposition: Home Clinical Impression: Nephrolithiasis, Constipation Condition: Stable Critical Care Time: No Referrals: CECIL MARKS [Primary Care Provider] - Additional Instructions: Discharge/Care Plan KEITH MENDEZ ISABEL was seen on 03/04/20 in the Emergency Room. The patient was counseled regarding Diagnosis,Lab results, Imaging studies, need for follow up and when to return to the Emergency Room. Prescriptions given: Discharge Note I have spoken with the patient and/or caregivers. I have explained the patient's condition, diagnosis and treatment plan based on the information available to me at this time. I have answered the patient's and/or caregiver's questions and addressed any concerns. The patient and/or caregivers have as good understanding of the patient's diagnosis, condition and treatment plan as can be expected at this point. The vital signs have been stable. The patient's condition is stable and appropriate for discharge from the emergency department. The patient will pursue further outpatient evaluation with the primary care physician or other designated or consulting physician as outlined in the discharge instructions. The patient and/or caregivers are agreeable to this plan of care and follow-up instructions have been explained in detail. The patient and/or caregivers have received these instruction. The patient/and or caregivers are aware that any significant change in condition or worsening of symptoms should prompt an immediate return to this or the closest emergency department or call 911.
[2020-03-04 04:45] VITALS: BP 119/72; PULSE 55
[2020-03-04 04:52] LABS: Epithelial Cells RARE /HPF (FEW); Mucus SLIGHT /HPF (NEGATIVE)
[2020-03-04 04:53] LABS: Appearance CLEAR (CLEAR); Bacteria NONE SEEN /HPF (NEGATIVE); Bilirubin NEGATIVE (NEGATIVE); Glucose NEGATIVE (NEGATIVE); Ketones TRACE (NEGATIVE); Nitrite NEGATIVE (NEGATIVE); Protein,Urine Dip NEGATIVE (Negative); RBC NEGATIVE Ery/ul (0-5); Specific Gravity 1.025 (1.005-1.025); Urobilinogen 0.2 mg/dL (0-1)
--- NOTE | 2020-03-04 09:27 | XRAY ---
Indication: Abdomen pain and constipation. Status post barium enema exam. Multiple contiguous images obtained through the abdomen and pelvis without contrast as ordered. Comparison: November 20, 2019. Lung bases remain clear with stable tiny medial right lower lobe calcified granuloma. Heart is not enlarged. Diffuse retained dense barium throughout the colon produces beam artifact limiting exam. Stomach and visualized bowel loops appear grossly nonobstructed. No obvious large free fluid/air. Grossly stable nonobstructing renal micro-calculus bilaterally and cholecystectomy. Remaining visualized liver, pancreas, spleen, adrenal glands, kidneys, ureters, bladder, uterus, and aorta appear grossly unremarkable for noncontrast exam. Osseous structures intact again with minimal degenerative changes throughout the spine. Impression: 1. Limited exam due to retained dense barium throughout the colon. 2. Grossly stable nonobstructing bilateral renal micro-calculus. Comment: Preliminary interpretation was made by [facility]. No critical discrepancy.
== END 2020-03-04 01:58 | disposition home or self-care (01) ==
LOC: ED 22:53
DX: K59.00 Constipation, unspecified (principal); N39.0 Urinary tract infection, site not specified; D64.9 Anemia, unspecified; Z79.899 Other long term (current) drug therapy; I10 Essential (primary) hypertension; N20.0 Calculus of kidney
CPT/HCPCS: 74176; 81015; 99284

== ENCOUNTER 2020-06-05 05:20 | Emergency (ER) | payer BC ==
[2020-06-05] MEDS ORDERED: TORAdol 30 mg Injection IV ONE (06:04)
--- NOTE | 2020-06-05 06:04 | ERPHSYRPT ---
- History of Present Illness Source: patient Exam Limitations: no limitations Patient Subjective Stated Complaint: pt c/o swelling to rt leg x1 week Triage Nursing Assessment: pt c/o swelling to rt leg x1 week, which seems to be getting worse and the pain is getting worse. Edema noted to Rt thigh, rt knee, rt calf and rt foot. rt pedal pulse present. Pt ambulated into ER Timing/Duration: week(s) Severity: moderate Modifying Factors: Improves With: movement, other (Palpation worsen symptoms.) Associated Symptoms: denies symptoms Hx Tetanus, Diphtheria Vaccination/Date Given: Yes Hx Influenza Vaccination/Date Given: No Hx Pneumococcal Vaccination/Date Given: No Immunizations Up to Date: Yes <MAHAD AMOR - Last Filed: 06/05/20 07:08> <GAURAV BHATIA - Last Filed: 06/05/20 08:14> - History of Present Illness Time Seen by Provider: 06/05/20 05:40 Physician History: Patient is a 49-year-old female presents to our emergency department with complaints of pain to her right leg. Pain to her right leg started approximately 1 week ago. Pain described as an ache that is localized. No radiation. Pain worse with palpation and ambulation. Pain improved with rest. Patient notes that she had an EGD performed 1 week ago Tuesday. Symptoms started approximately the same time. Patient denies chest pain. No nausea vomiting or diaphoresis. No history of DVT. No history of PE. Symptoms are mild to moderate in intensity. Patient voices no other complaints or concerns at this time. (MAHAD AMOR) Allergies/Adverse Reactions: cephalexin monohydrate [From Keflex] Allergy (Intermediate, Verified 06/05/20 05:36) Rash Penicillins Allergy (Intermediate, Verified 06/05/20 05:36) Rash prednisone Allergy (Intermediate, Verified 06/05/20 05:36) Rash pt reports feeling hot and flushed with prednisone Home Medications: Lisinopril 30 mg PO DAILY 09/12/11 [History] Multivitamin W/Iron, Minerals [Unicap Sr] 1 each PO DAILY 09/12/11 [History] Zolpidem Tartrate 10 mg [Ambien 10 MG] 10 mg PO HS 09/12/11 [History] Buspirone HCl 15 mg PO DAILY 11/10/13 [History] Potassium Chloride [Klor-Con 8] 8 meq PO DAILY 11/12/13 [History] Citalopram Hydrobromide [Celexa] 60 mg PO DAILY 05/13/16 [History] Furosemide 20 mg [Lasix 20 mg] 60 mg PO DAILY 08/27/16 [History] Celecoxib [Celebrex] 200 mg PO BID 06/26/18 [History] Cyanocobalamin (Vitamin B-12) [B-12] 1,000 mcg PO DAILY 06/26/18 [History] Gabapentin 300 mg PO TID 06/26/18 [History] PANTOPRAZOLE 40 mg Tablet [Protonix 40MG Tablet] 40 mg PO BID 06/26/18 [History] Lubiprostone [Amitiza] 24 mcg PO DAILY 06/05/20 [History] PANTOPRAZOLE 40 mg Tablet [Protonix 40MG Tablet] 40 mg PO BID 06/05/20 [History] Travel Risk - International Travel Have you traveled outside of the country in past 3 weeks: No - Coronavirus Screening Are you exhibiting any of the following symptoms?: No Close contact with a COVID-19 positive Pt in past 14-21 Days: No <MAHAD AMOR - Last Filed: 06/05/20 07:08> - Review of Systems Constitutional: No Symptoms, No Fever, No Chills Eyes: No Symptoms Ears, Nose, & Throat: No Symptoms Respiratory: No Symptoms, No Cough, No Dyspnea Cardiac: No Symptoms, No Chest Pain, No Edema, No Syncope Abdominal/Gastrointestinal: No Symptoms, No Abdominal Pain, No Nausea, No Vomiting, No Diarrhea Genitourinary Symptoms: No Symptoms, No Dysuria Musculoskeletal: No Symptoms, No Back Pain, No Neck Pain Skin: No Symptoms, No Rash Neurological: No Symptoms, No Dizziness, No Focal Weakness, No Sensory Changes Psychological: No Symptoms Endocrine: No Symptoms Hematologic/Lymphatic: No Symptoms Immunological/Allergic: No Symptoms All Other Systems: Reviewed and Negative <MAHAD AMOR - Last Filed: 06/05/20 07:08> - Past Medical History Pertinent Past Medical History: Yes Neurological History: No Pertinent History ENT History: No Pertinent History Cardiac History: Deep Vein Thrombosis, Hypertension Respiratory History: No Pertinent History Endocrine Medical History: No Pertinent History Musculoskeletal History: Arthritis GI Medical History: Colitis, Diverticulitis, GERD, Gallbladder Disease, Other History: No Pertinent History Psycho-Social History: Anxiety, Depression, Panic Disorder Female Reproductive Disorders: Pelvic Inflammatory Disease Other Medical History: anemia - Past Surgical History Past Surgical History: Yes Neuro Surgical History: No Pertinent History Cardiac: No Pertinent History Respiratory: No Pertinent History Gastrointestinal: Cholecystectomy Genitourinary: No Pertinent History Musculoskeletal: Other Female Surgical History: Section, Tubal Ligation, Other Other Surgical History: back surgery disc pain,nerve removed, nodule taken off s tomach, x 2, ablation uterine, endoscopy and blockage removed - Social History Smoking Status: Never smoker Exposure to second hand smoke: No Drug Use: none Patient Lives Alone: No Significant Family History: no pertinent family hx - Female History Hx Now: No <MAHAD AMOR Filed: 06/05/20 07:08> - Physical Exam General Appearance: no apparent distress, alert, other (BMI 56.4.) Eye Exam: PERRL/EOMI, eyes nml inspection Ears, Nose, Throat Exam: normal ENT inspection, TMs normal, pharynx normal, moist mucous membranes Neck Exam: normal inspection, non-tender, supple, full range of motion Respiratory Exam: normal breath sounds, lungs clear, No respiratory distress Cardiovascular Exam: regular rate/rhythm, normal heart sounds, normal peripheral pulses Gastrointestinal/Abdomen Exam: soft, normal bowel sounds, No tenderness, No mass Back Exam: normal inspection, normal range of motion, No CVA tenderness, No vertebral tenderness Extremity Exam: normal inspection, normal range of motion, pelvis stable Neurologic Exam: alert, oriented x 3, cooperative, normal mood/affect, nml cerebellar function, nml station & gait, sensation nml, No motor deficits Skin Exam: normal color, warm, dry, No rash Lymphatic Exam: No adenopathy SpO2 Interpretation: normal SpO2: 98 O2 Delivery: Room Air <MAHAD AMOR Filed: 06/05/20 07:08> - Nursing Vital Signs Nursing Vital Signs: Initial Vital Signs Temperature 97.8 F 06/05/20 05:21 Pulse Rate 64 06/05/20 05:21 Respiratory Rate 22 06/05/20 05:21 Blood Pressure 183/98 06/05/20 05:21 O2 Sat by Pulse Oximetry 98 06/05/20 05:21 Pain Scale Pain Intensity 7 - Course Nursing assessment & vital signs reviewed: Yes <MAHAD AMOR - Last Filed: 06/05/20 07:08> Ordered Tests: Active Orders 24 hr Category Date Time Status LOWER LEG Stat Exams 06/05/20 05:54 Taken VENOUS UNILAT/LIMITED EXTREMIT [US] Stat Exams 06/05/20 05:50 Taken CBC W DIFF Stat Lab 06/05/20 06:55 Completed CK (IN-HOUSE) [CK-Creatinine Phosphokinase] Stat Lab 06/05/20 06:55 Completed CMP Stat Lab 06/05/20 06:55 Completed CULTURE,URINE Stat Lab 06/05/20 06:24 Received UA W/RFX UR CULTURE Stat Lab 06/05/20 06:24 Ordered Medication Summary Discontinued Medications Generic Name Dose Route Start Last Admin Trade Name Reinaldoq PRN Reason Stop Dose Admin Ketorolac Tromethamine 30 mg 06/05/20 06:04 06/05/20 06:19 Toradol 30 Mg Injection IV 06/05/20 06:05 30 mg STAT ONE Administration Ketorolac Tromethamine Confirm 06/05/20 06:17 Toradol 30 Mg Injection Administered 06/05/20 06:18 Dose 30 mg .ROUTE .STK-MED ONE Lab/Rad Data: Laboratory Result Diagrams 06/05/20 06:55 06/05/20 06:55 Laboratory Results 06/05/20 06/05/20 06/05/20 Range/Units 06:55 06:55 06:55 WBC 6.3 (4.0-10.5) K/mm3 RBC 3.94 L (4.1-5.4) M/mm3 Hgb 11.8 L (12.0-16.0) gm/dl Hct 38.3 (35-47) % MCV 97.2 (78-100) fl MCH 29.9 (26-32) pg MCHC 30.8 L (32-36) g/dl RDW 13.7 (11.5-14.0) % Plt Count 255 (150-450) K/mm3 MPV 8.9 (7.5-11.0) fl Gran % 66.0 (36.0-66.0) % Eos # (Auto) 0.14 (0-0.5) Absolute Lymphs (auto) 1.47 (1.0-4.6) Absolute Monos (auto) 0.49 (0.0-1.3) Lymphocytes % 23.5 L (24.0-44.0) % Monocytes % 7.8 (0.0-12.0) % Eosinophils % 2.2 (0.00-5.0) % Basophils % 0.5 (0.0-0.4) % Absolute Granulocytes 4.13 (1.4-6.9) Basophils # 0.03 (0-0.4) Sodium 139 (137-145) mmol/L Potassium 4.4 (3.5-5.1) mmol/L Chloride 102 (98-107) mmol/L Carbon Dioxide 28 (22-30) mmol/L Anion Gap 13.1 (5-15) MEQ/L BUN 16 (7-17) mg/dL Creatinine 0.59 (0.52-1.04) mg/dL Estimated GFR > 60.0 ML/MIN Glucose 110 H (74-106) mg/dL Calcium 8.9 (8.4-10.2) mg/dL Total Bilirubin 0.20 (0.2-1.3) mg/dL AST 18 (14-36) U/L ALT 14 (0-35) U/L Alkaline Phosphatase 52 (38-126) U/L Creatine Kinase 72 (30-135) U/L Serum Total Protein 6.9 (6.3-8.2) g/dL Albumin 4.0 (3.5-5.0) g/dL - Progress Progress: improved <MAHAD AMOR - Last Filed: 06/05/20 07:08> - Progress Counseled pt/family regarding: lab results, diagnosis, need for follow-up, rad results <GAURAV BHATIA - Last Filed: 06/05/20 08:14> - Progress Progress Note: 06/05/20 07:[address] Bhatia at 0700 for final disposition. Work-up pending. (MAHAD AMOR) 06/05/20 08:13 Venous Doppler shows no evidence of any deep venous thrombosis. (GAURAV BHATIA) - Departure Critical Care Time: No <MAHAD AMOR - Last Filed: 06/05/20 07:08> - Departure Departure Disposition: Home Critical Care Time: No <GAURAV BHATIA - Last Filed: 06/05/20 08:14> - Departure Clinical Impression: Leg pain Condition: Stable Referrals: CECIL MARKS [Primary Care Provider] - Additional Instructions: Follow-up with your primary care physician for further management and pain control of your leg pain. Take your medications as prescribed. Forms: Work/School Release Form
[2020-06-05] MEDS ORDERED: TORAdol 30 mg Injection ONE (06:17)
[2020-06-05 06:30] VITALS: PULSE 58
[2020-06-05 07:03] LABS: Absolute Neutrophil Ct (ANC) 4.13 (1.4-6.9); BASOPHIL % 0.5 % (0.0-0.4); Basophil (Absolute #) 0.03 (0-0.4); Eosinophil % 2.2 % (0.00-5.0); Eosinophil (Absolute #) 0.14 (0-0.5); Hematocrit 38.3 % (35-47); Hemoglobin 11.8 gm/dl (12.0-16.0); Lymphocyte (Absolute #) 1.47 (1.0-4.6); Lymphocytes % 23.5 % (24.0-44.0); Mean Cell Volume 97.2 fl (78-100); Mean Corpuscular Hemoglobin 29.9 pg (26-32); Mean Corpuscular Hgb Concent. 30.8 g/dl (32-36); Mean Platelet Volume 8.9 fl (7.5-11.0); Monocyte (Absolute #) 0.49 (0.0-1.3); Monocytes % 7.8 % (0.0-12.0); Platelet Count 255 K/mm3 (150-450); Red Blood Count 3.94 M/mm3 (4.1-5.4); Red Cell Distribution Width 13.7 % (11.5-14.0); White Blood Count 6.3 K/mm3 (4.0-10.5)
[2020-06-05 07:12] LABS: ALKALINE PHOSPHATASE 52 U/L (38-126); ANION GAP 13.1 MEQ/L (5-15); BLOOD UREA NITROGEN 16 mg/dL (7-17); CHLORIDE 102 mmol/L (98-107); Calcium 8.9 mg/dL (8.4-10.2); Carbon Dioxide 28 mmol/L (22-30); Creatinine 1 0.59 mg/dL (0.52-1.04); EST GLOMERULAR FILTRATION RATE > 60.0 ML/MIN; Glucose 110 mg/dL (74-106); Potassium 4.4 mmol/L (3.5-5.1); SGOT/AST 18 U/L (14-36); SGPT/ALT 14 U/L (0-35); SODIUM 139 mmol/L (137-145); Total Protein 6.9 g/dL (6.3-8.2)
[2020-06-05 07:45] VITALS: BP 135/62; O2SAT 97
--- NOTE | 2020-06-05 08:55 | XRAY ---
Indication: Knee pain and lower leg swelling. No known injury. Comparison: None 2 view right lower leg demonstrates tiny anterior soft tissue calcified granulomas and tiny posterior heel spur. No other bony, articular, or soft tissue abnormalities.
--- NOTE | 2020-06-05 08:55 | XRAY ---
Indication: Right leg pain and swelling. Two-dimensional sonogram and color Doppler imaging of the major venous vessels of the right leg was performed. Comparison: None No thrombus seen in the examined deep venous vessels of the right leg including greater saphenous vein. Veins demonstrate normal compressibility. Venous waveforms are normal with and without augmentation. Impression: Right leg negative for DVT. Comment: Preliminary report was given.
[2020-06-05 09:18] LABS: Appearance CLEAR (CLEAR); Bilirubin NEGATIVE (NEGATIVE); Blood NEGATIVE Ery/ul (0-5); Epithelial Cells RARE /HPF (FEW); Glucose NEGATIVE (NEGATIVE); Ketones NEGATIVE (NEGATIVE); Leukocyte Esterase NEGATIVE (NEGATIVE); Mucus SLIGHT /HPF (NEGATIVE); Nitrite NEGATIVE (NEGATIVE); Protein,Urine Dip 30 (Negative); Specific Gravity 1.029 (1.005-1.025); Urobilinogen 4 mg/dL (0-1)
== END 2020-06-05 09:48 | disposition home or self-care (01) ==
LOC: ED 05:20
DX: M79.604 Pain in right leg (principal); R60.9 Edema, unspecified; Z79.899 Other long term (current) drug therapy; Z86.718 Personal history of other venous thrombosis and embolism; I10 Essential (primary) hypertension
CPT/HCPCS: 36415; 73590; 80053; 81001; 82550; 85025; 87086; 93971; 96372; 99284; J1885

== ENCOUNTER 2022-10-14 19:05 | Emergency (ER) | payer BC ==
[2022-10-14 19:38] VITALS: PULSE 60; TEMP 97.5
--- NOTE | 2022-10-14 19:49 | ERPHSYRPT ---
- History of Present Illness Time Seen by Provider: 10/14/22 19:14 Source: patient Exam Limitations: no limitations Patient Subjective Stated Complaint: pt states blood pressure was 205/110 and is running high Triage Nursing Assessment: pt ambulated into the er; pt is axo x4; c/o htn; htn 159/79; c/o headache; c/o N/V; no respiratory distress present; skin PDW Physician History: 51-year-old female with history of hypertension, sick sinus syndrome with pacemaker placement, recent Calderon's palsy, was started on Valtrex along with a shot of Kenalog yesterday by PCP presented in the ER with chief complaint of elevated blood pressure with systolic over 200 earlier despite taking her routine medications. She also complaining of mild dull aching headache. Reports some nausea but no vomiting. Denies any chest pain palpitations or shortness of breath. Patient blood pressure is 159/79 systolic currently in the ER. Patient reports since yesterday she is feeling weak fatigued and tired. Timing/Duration: today Severity: moderate, severe Associated Symptoms: nausea, headaches, No vomiting, No abdominal pain, No shortness of breath, No chest pain, No malaise, No syncope Allergies/Adverse Reactions: cephalexin [From Keflex] Allergy (Verified 10/14/22 19:16) Diarrhea Penicillins Allergy (Verified 10/14/22 19:16) Hives prednisone Allergy (Verified 10/14/22 19:16) Hives Home Medications: Lisinopril 40 mg PO DAILY 09/12/11 [History] Multivitamin W/Iron, Minerals [Unicap Sr.] 1 each PO DAILY 09/12/11 [History] Zolpidem Tartrate 10 mg [Ambien 10 MG] 10 mg PO HS 09/12/11 [History] Buspirone HCl 15 mg PO DAILY 11/10/13 [History] Potassium Chloride [Klor-Con 8] 8 meq PO DAILY 11/12/13 [History] Furosemide 20 mg [Lasix 20 mg] 60 mg PO DAILY 08/27/16 [History] Celecoxib [Celebrex] 200 mg PO BID 06/26/18 [History] Cyanocobalamin (Vitamin B-12) [B-12] 1,000 mcg PO DAILY 06/26/18 [History] Gabapentin 600 mg PO TID 06/26/18 [History] PANTOPRAZOLE 40 mg Tablet [Protonix 40MG Tablet] 40 mg PO DAILY 06/05/20 [History] Amlodipine Besylate 5 mg [Norvasc 5 mg] 5 mg PO DAILY 10/14/22 [History] Apixaban [Eliquis] 5 mg PO BID 10/14/22 [History] Duloxetine HCl [Cymbalta] 60 mg PO DAILY 10/14/22 [History] Levothyroxine Sodium 50 mcg PO DAILY 10/14/22 [History] Metoprolol Succinate 50 mg [Toprol Xl 50 MG] 50 mg PO DAILY 10/14/22 [History] Semaglutide [Ozempic] 0.25 mg SQ WEEKLY 10/14/22 [History] Valacyclovir HCl [valACYclovir] 1,000 mg PO Q12H 10/14/22 [History] Zolpidem Tartrate 10 mg [Ambien 10 MG] 10 mg PO HS 10/14/22 [History] Hx Tetanus, Diphtheria Vaccination/Date Given: Yes Hx Influenza Vaccination/Date Given: No Hx Pneumococcal Vaccination/Date Given: No Travel Risk - International Travel Have you traveled outside of the country in past 3 weeks: No - Coronavirus Screening Are you exhibiting any of the following symptoms?: No Close contact with a COVID-19 positive Pt in past 14-21 Days: No - Vaccine Status Have you recieved a Covid-19 vaccination: No - Review of Systems Constitutional: Fatigue Eyes: No Symptoms Ears, Nose, & Throat: No Symptoms Respiratory: No Symptoms Cardiac: No Symptoms Abdominal/Gastrointestinal: Nausea Genitourinary Symptoms: No Symptoms Musculoskeletal: No Symptoms Skin: No Symptoms Neurological: Headache Psychological: No Symptoms Endocrine: No Symptoms Hematologic/Lymphatic: No Symptoms Immunological/Allergic: No Symptoms - Past Medical History Pertinent Past Medical History: Yes Neurological History: No Pertinent History ENT History: No Pertinent History Cardiac History: Deep Vein Thrombosis, Hypertension Respiratory History: No Pertinent History Endocrine Medical History: No Pertinent History Musculoskeletal History: Arthritis GI Medical History: Colitis, Diverticulitis, GERD, Gallbladder Disease, Other History: No Pertinent History Psycho-Social History: Anxiety, Depression, Panic Disorder Female Reproductive Disorders: Pelvic Inflammatory Disease Other Medical History: anemia - Past Surgical History Past Surgical History: Yes Neuro Surgical History: No Pertinent History Cardiac: Pacemaker Respiratory: No Pertinent History Gastrointestinal: Cholecystectomy Genitourinary: No Pertinent History Musculoskeletal: Other Female Surgical History: Section, Tubal Ligation, Other Other Surgical History: back surgery disc pain,nerve removed, nodule taken off stomach, x 2, ablation uterine, endoscopy and blockage removed - Social History Smoking Status: Never smoker Exposure to second hand smoke: No Drug Use: none Patient Lives Alone: No Significant Family History: no pertinent family hx - Nursing Vital Signs Nursing Vital Signs: Initial Vital Signs Temperature 97.5 F 10/14/22 19:13 Pulse Rate 60 10/14/22 19:13 Respiratory Rate 18 10/14/22 19:13 Blood Pressure 159/79 10/14/22 19:13 O2 Sat by Pulse Oximetry 96 10/14/22 19:13 Pain Scale Pain Intensity 3 - Physical Exam General Appearance: no apparent distress, alert Eye Exam: PERRL/EOMI, eyes nml inspection Ears, Nose, Throat Exam: normal ENT inspection, TMs normal, pharynx normal, moist mucous membranes Neck Exam: normal inspection, non-tender, supple, full range of motion Respiratory Exam: normal breath sounds, lungs clear Cardiovascular Exam: regular rate/rhythm, normal heart sounds Gastrointestinal/Abdomen Exam: soft, normal bowel sounds, No tenderness Back Exam: normal inspection, normal range of motion Extremity Exam: normal inspection, normal range of motion, pelvis stable Neurologic Exam: alert, oriented x 3, cooperative, plain clothes police officer II-XII nml as tested, normal mood/affect, nml cerebellar function, nml station & gait, sensation nml, No motor deficits Skin Exam: normal color SpO2 Interpretation: normal SpO2: 96 O2 Delivery: Room Air - Course EKG Interpreted by Me: RATE (60 atrial paced rhythm), NORMAL AXIS, NORMAL INTERVALS, Non-specific ST Changes Ordered Tests: Active Orders 24 hr Category Date Time Status Canine Enforcement Officer STAT Care 10/14/22 19:41 Completed EKG-ER Only STAT Care 10/14/22 19:41 Completed CBC W DIFF Stat Lab 10/14/22 19:56 Completed CMP Stat Lab 10/14/22 19:56 Completed NT PRO BNPII Stat Lab 10/14/22 19:56 Completed TROPONIN Q4H Lab 10/14/22 19:56 Completed Lab/Rad Data: Laboratory Result Diagrams 10/14/22 19:56 10/14/22 19:56 Laboratory Results 10/14/22 10/14/22 10/14/22 Range/Units 19:56 19:56 19:56 WBC 6.8 (4.0-10.5) x10^3/uL RBC 4.13 (4.1-5.4) x10^6/uL Hgb 12.5 (12.0-16.0) g/dL Hct 38.0 (35-47) % MCV 92.0 (78-100) fL MCH 30.3 (26-32) pg MCHC 32.9 (32-36) g/dL RDW 12.7 (11.5-14.0) % Plt Count 288 (150-450) x10^3/uL MPV 8.8 (7.5-11.0) fL Gran % 67.0 H (36.0-66.0) % Immature Gran % (Auto) 0.3 (0.00-0.4) % Nucleat RBC Rel Count 0.0 (0.00-0.1) % Eos # (Auto) 0.15 (0-0.5) x10^3/uL Immature Gran # (Auto) 0.02 (0.00-0.03) x10^3u/L Absolute Lymphs (auto) 1.61 (1.0-4.6) x10^3/uL Absolute Monos (auto) 0.43 (0.0-1.3) x10^3/uL Absolute Nucleated RBC 0.00 (0.00-0.01) x10^3u/L Lymphocytes % 23.6 L (24.0-44.0) % Monocytes % 6.3 (0.0-12.0) % Eosinophils % 2.2 (0.00-5.0) % Basophils % 0.6 (0.0-0.4) % Absolute Granulocytes 4.57 (1.4-6.9) x10^3/uL Basophils # 0.04 (0-0.4) x10^3/uL Sodium 140 (137-145) mmol/L Potassium 4.3 (3.5-5.1) mmol/L Chloride 103 (98-107) mmol/L Carbon Dioxide 31 H (22-30) mmol/L Anion Gap 10.2 (5-15) MEQ/L BUN 8 (7-17) mg/dL Creatinine 0.60 (0.52-1.04) mg/dL Estimated GFR > 60.0 ML/MIN Glucose 81 (74-106) mg/dL Calcium 8.8 (8.4-10.2) mg/dL Total Bilirubin 0.50 (0.2-1.3) mg/dL AST 20 (14-36) U/L ALT 20 (0-35) U/L Alkaline Phosphatase 62 (38-126) U/L Troponin I < 0.012 (0.000-0.034) ng/mL NT-Pro-B Natriuret Pep 189 (<300) pg/mL Serum Total Protein 7.0 (6.3-8.2) g/dL Albumin 4.0 (3.5-5.0) g/dL - Progress Progress: improved Progress Note: 10/14/22 19:49 51-year-old female with history of hypertension, sick sinus syndrome with pacemaker placement, recent Calderon's palsy, was started on Valtrex along with a shot of Kenalog yesterday by PCP presented in the ER with chief complaint of elevated blood pressure with systolic over 200 earlier despite taking her routine medications. She also complaining of mild dull aching headache. Reports some nausea but no vomiting. Denies any chest pain palpitations or shortness of breath. Patient blood pressure is 159/79 systolic currently in the ER. Patient reports since yesterday she is feeling weak fatigued and tired. 10/14/22 21:19 Patient blood pressure is in 150s during my evaluation. EKG is normal sinus rhythm with no ST elevations. She has a negative troponin. She is at fairly unremarkable chemistries. Offered symptomatic relief for headache but patient states is minimal and does not want it. She has no signs of meningismus. Nonfocal neuro exam. Blood pressure on later evaluation improved to 138 systolic without any intervention. Part of her symptoms of generalized weakness and tiredness is secondary to recent injection of steroid and being on antiviral for Calderon's palsy. Recommended blood pressure monitoring, keeping a log and outpatient follow-up. I do not think he needs any other work-up and is stable for discharge with outpatient follow-up. Discussed signs symptoms of worsening needing return to ER which he seems understanding. Counseled pt/family regarding: lab results, diagnosis, need for follow-up Medical Desision Making - Risk of complications Low Risk: Low risk of morbidity from additional dx testing or treatment - Departure Departure Disposition: Home Clinical Impression: Uncontrolled hypertension Condition: Stable Critical Care Time: No Referrals: CECIL MARKS NP [Primary Care Provider] - Follow up with PCP 1 day Instructions: Malignant Hypertension (DC) Additional Instructions: Take low-salt diet, regular exercise, weight loss, keep a log of your blood pressure and follow-up with primary care for reevaluation. Return to ER for intractable headache, numbness tingling weakness, visual disturbance, chest pain palpitations or shortness of breath.
[2022-10-14 19:58] LABS: Absolute Neutrophil Ct (ANC) 4.57 x10^3/uL (1.4-6.9); BASOPHIL % 0.6 % (0.0-0.4); Basophil (Absolute #) 0.04 x10^3/uL (0-0.4); Eosinophil % 2.2 % (0.00-5.0); Eosinophil (Absolute #) 0.15 x10^3/uL (0-0.5); Hemoglobin 12.5 g/dL (12.0-16.0); IMMATURE GRAN # 0.02 x10^3u/L (0.00-0.03); IMMATURE GRAN % 0.3 % (0.00-0.4); Lymphocyte (Absolute #) 1.61 x10^3/uL (1.0-4.6); Lymphocytes % 23.6 % (24.0-44.0); Mean Corpuscular Hemoglobin 30.3 pg (26-32); Mean Corpuscular Hgb Concent. 32.9 g/dL (32-36); Mean Platelet Volume 8.8 fL (7.5-11.0); Monocyte (Absolute #) 0.43 x10^3/uL (0.0-1.3); Monocytes % 6.3 % (0.0-12.0); Platelet Count 288 x10^3/uL (150-450); Red Blood Count 4.13 x10^6/uL (4.1-5.4); Red Cell Distribution Width 12.7 % (11.5-14.0); White Blood Count 6.8 x10^3/uL (4.0-10.5)
[2022-10-14 20:24] LABS: NT PRO BNPII 189 pg/mL (<300); TROPONIN < 0.012 ng/mL (0.000-0.034)
[2022-10-14 20:25] LABS: ALKALINE PHOSPHATASE 62 U/L (38-126); ANION GAP 10.2 MEQ/L (5-15); BLOOD UREA NITROGEN 8 mg/dL (7-17); CHLORIDE 103 mmol/L (98-107); Calcium 8.8 mg/dL (8.4-10.2); Carbon Dioxide 31 mmol/L (22-30); EST GLOMERULAR FILTRATION RATE > 60.0 ML/MIN; Glucose 81 mg/dL (74-106); Potassium 4.3 mmol/L (3.5-5.1); SGOT/AST 20 U/L (14-36); SGPT/ALT 20 U/L (0-35); SODIUM 140 mmol/L (137-145)
[2022-10-14 21:22] VITALS: O2SAT 96
[2022-10-14 21:31] VITALS: BP 138/82; RESP 13
== END 2022-10-14 21:38 | disposition home or self-care (01) ==
LOC: ED 19:05
DX: I10 Essential (primary) hypertension (principal); R51.9 Headache, unspecified; R11.0 Nausea; R53.1 Weakness; Z79.01 Long term (current) use of anticoagulants; Z79.85 Long-term (current) use of injectable non-insulin antidiabetic drugs; Z79.899 Other long term (current) drug therapy; Z28.310 Unvaccinated for COVID-19
CPT/HCPCS: 36415; 80053; 83880; 84484; 85025; 93005; 93041; 99284

== ENCOUNTER 2023-09-20 06:01 | Day surgery (SDC) | payer BC ==
[2023-09-20] MEDS: Lactated Ringers 1,000 ML IV SCH (06:24)
[2023-09-20 06:30] VITALS: PULSE 60; RESP 16
[2023-09-20] MEDS ORDERED: DIPRIVAN 200 MG/20 ML IV ONE ×2 (07:28→07:37)
[2023-09-20 08:17] VITALS: BP 158/87; TEMP 97.6; O2SAT 96
--- NOTE | 2023-09-21 10:27 | OP ---
SURGERY DATE/TIME: 09/20/2023 [id number] PREOPERATIVE DIAGNOSIS: Abdominal pain. POSTOPERATIVE DIAGNOSIS: Gastritis. PROCEDURE: Esophagogastroduodenoscopy with cold forceps biopsies of the gastric antrum. SURGEON: Sukhjinder Gaona MD ANESTHESIA: Medication given by the Anesthesia Department. HISTORY: The patient is a 52-year-old white female who is presenting now for endoscopic evaluation for abdominal pain. It was noted that the patient is on Celebrex, which she recognizes is a medicine that can cause her stomach discomfort, but she says unless she takes it, she hurts in all her joints. The patient was felt the need to have endoscopic evaluation to determine other causes of the gastritis that might be present. She was apprised of the risks of the procedure including the risk of perforation, phlebitis, untoward reaction to medications, sore throat. The patient verbalized understanding and desired to have the procedure performed. DESCRIPTION OF PROCEDURE AND FINDINGS: The patient was given medication by the Anesthesia Department. She had continuous pulse oximetry, ECG monitoring, and intermittent blood pressure monitoring during the examination. She was placed in the left lateral decubitus position. A bite block was placed and the flexible Olympus gastroscope was used to intubate the oropharynx, which appeared to be essentially normal. The scope was easily introduced in the esophagus, which appeared to be essentially normal throughout its length. The stomach was entered where a fair amount of diffuse gastritis was noted. There were some food particles still present in the stomach as well. We were able to pass the scope along the greater curvature of the stomach and avoid what little remaining food particles were there and intubate the pylorus. The duodenum was inspected and found to be essentially normal. The scope was withdrawn towards the stomach. A retroflex view was obtained of the lesser curvature, fundus, and cardia of the stomach which showed no additional pathology. The scope was then redirected towards the gastric antrum where biopsies were obtained using the cold biopsy technique and sent to Pathology to rule out the presence of Helicobacter pylori-type organisms. The scope was then removed. The patient tolerated the procedure well and was sent back to outpatient recovery in good condition.
== END 2023-09-20 08:28 | disposition home or self-care (01) ==
LOC: SDC 06:01
PROVIDERS: ATTEND Family Medicine
DX: K29.70 Gastritis, unspecified, without bleeding (principal); R10.9 Unspecified abdominal pain
CPT/HCPCS: J2704